=== PATIENT | male | born 1960 | race Caucasian/White ===

== ENCOUNTER 2021-07-21 16:27 | Inpatient (IN) | payer OTHER ==
[~2021-07-21] VITALS: Ht 165.1 cm; Wt 63.5 kg
--- NOTE | ~2021-07-21 | EMS ---
[address] [address] EMS Patient Care Report Name: RADHA MCMAHAN Room #: 213-P ADM IN M.R.#: [id number] Admission: 07/21/21 Attend Phys: Shubham Beckford MD Discharge: Date of : 58 Report #: [id number] THIS REPORT FOR: //name// Report Transmitted: 07/22/2021 12:26 EMS Care Summary [place], [place] Incident [id number] @ 07/21/2021 16:00 Incident Location [id number] [place] [address] Patient RADHA ROSALES Male, 61 Years 1960 Patient Address [id number] [place] [address] Patient History Diabetes,Hypertension (HTN),Dialysis, Patient Allergies Other drug allergy, Patient Medications None Reported, Chief Complaint alt loc Disposition Transported No Lights/[place] Dispatch Reason Stroke/CVA Transported To [facility] Narrative family wheeled pt outside in wheelchair. pt found sitting upright in wheelchair and presented with somnolence. pt confused gcs 13. pt stated he feels "awful". pts family stated pt has missed the last two dialysis appointments due to just moving into the area. family stated pts last dialysis was 07-16. pts skin is [address] [address] EMS Patient Care Report Name: RADHA MCMAHAN Room #: 213-P [facility] IN .R.#: [id number] Admission: 07/21/21 Attend Phys: Shubham Beckford MD Discharge: Date of : 58 Report #: [id number] warm to the touch. pts laguna bag is dark. pts family agreed for [facility]. pt was transferred onto ems cot and was secured in a semi fowlers position without incident. pt was loaded into ambulance. pt was transported non emergent. transport was uneventful and pt rested on ems cot. pt care was transferred to appropriate staff and ems goes back in service. Initial Vitals @16:10P: 82,R: 20,BP: 112/62,Pain: 0/10,GCS: 13,Glucose: 258,SpO2: 92,Revised Trauma: 12, @16:21P: 82,R: 20,BP: 116/70,Pain: 0/10,GCS: 13,SpO2: 98,Revised Trauma: 12, Assessments @16:14MENTAL:No Abnormalities,SKIN:Hot,HEENT:Head/Face: No Abnormalities,Eyes: No Abnormalities,Neck/Airway: No Abnormalities,LUNG SOUNDS:General: No Abnormalities,Left Upper: No Abnormalities,Right Upper: No Abnormalities,Left Lower: No Abnormalities,Right Lower: No Abnormalities,ABDOMEN:General: No Abnormalities,Left Upper: No Abnormalities,Right Upper: No Abnormalities,Left Lower: No Abnormalities,Right Lower: No Abnormalities,PELVIS//GI:No Abnormalities,EXTREMITIES:Left Arm: No Abnormalities,Right Arm: No Abnormalities,Left Leg: No Abnormalities,Right Leg: No Abnormalities,PULSE:NEURO:No Abnormalities,@16:14MENTAL:No Abnormalities,SKIN:No Abnormalities,HEENT:Head/Face: No Abnormalities,Eyes: No Abnormalities,Neck/Airway: No Abnormalities,LUNG SOUNDS:General: No Abnormalities,Left Upper: No Abnormalities,Right Upper: No Abnormalities,Left Lower: No Abnormalities,Right Lower: No Abnormalities,ABDOMEN:General: No Abnormalities,Left Upper: No Abnormalities,Right Upper: No Abnormalities,Left Lower: No Abnormalities,Right Lower: No Abnormalities,PELVIS//GI:No Abnormalities,EXTREMITIES:Left Arm: No Abnormalities,Right Arm: No Abnormalities,Left Leg: No Abnormalities,Right Leg: No Abnormalities,PULSE:NEURO:No Abnormalities, Impression Altered Mental Status Procedures @16:07ALS AssessmentResponse: UnchangedSucceeded@16:19Oxygen FlowRate: 2 Device: Nasal Cannula (NC) Response: ImprovedSucceeded Timeline 15:59,Call Received 15:59,Dispatch Notified 16:00,Dispatched 16:01,En Route 16:05,On Scene 16:07,At Patient 16:07,ALS Assessment,Response: UnchangedSucceeded, [address] [address] EMS Patient Care Report Name: RADHA MCMAHAN Room #: 213-P [facility] IN M.R.#: [id number] Admission: 07/21/21 Attend Phys: Shubham Beckford MD Discharge: Date of : 58 Report #: [id number] 16:10,BP: 112/62 M,PULSE: 82,RR: 20 R,SPO2: 92 Ox,ETCO2: ,B,PAIN: 0,GCS: 13, 16:13,Depart Scene 16:19,Oxygen FlowRate: 2 Device: Nasal Cannula (NC) Response: ImprovedSucceeded, 16:21,BP: 116/70 M,PULSE: 82,RR: 20 R,SPO2: 98 Ox,ETCO2: ,BG: ,PAIN: 0,GCS: 13, 16:23,At Destination 16:36,Call Closed Disclaimer v1.1 Copyright 2020 [employer] This EMS Care Summary contains data elements from the applicable legal record (which may be displayed differently). It is designed to provide pertinent information for the following purposes: continuity of care, clinical quality, and state data reporting. The complete legal record is available to ED staff and administrators of the receiving hospital in ES's Patient Tracker. All data is provided "as is."
[2021-07-21 16:28] VITALS: BP 115/45
[2021-07-21 16:46] LABS: ABSOLUTE NEUTROPHILS 6.4 thou/uL (1.4-8.2); BASOPHILS 0.4 % (0.0-2.0); EOSINOPHILS 0.7 % (0.0-3.0); HEMATOCRIT 29.1 % (42.0-52.0); HEMOGLOBIN 9.9 gm/dL (14.0-18.0); MCHC 34.1 g/dL (28.0-37.0); MCV 82.2 fL (80.0-100.0); MONOCYTES 3.6 % (1.0-8.0); PLATELET COUNT 123 thou/uL (150-400); POLYS 89.3 % (36.0-66.0); RBC 3.54 mil/uL (4.50-6.00); RDW 17.2 % (10.5-14.5); WBC 7.1 thou/uL (4.0-11.0)
[2021-07-21 16:55] LABS: CALCIUM 7.4 mg/dL (8.5-10.1); CREATININE 7.5 mg/dL (0.7-1.3); POTASSIUM 4.4 mmol/L (3.5-5.1)
[2021-07-21 17:00] LABS: ALBUMIN 3.1 g/dL (3.4-5.0); TOTAL BILIRUBIN 0.8 mg/dL (0.2-1.0); TOTAL PROTEIN 7.4 g/dL (6.4-8.2)
[2021-07-21 17:29] LABS: URINE BILIRUBIN NEGATIVE (Negative); URINE BLOOD 2+ (Negative); URINE CLARITY CLEAR; URINE COLOR YELLOW; URINE GLUCOSE-RANDOM* NEGATIVE (Negative); URINE KETONES TRACE (Negative); URINE NITRITE-REFLEX NEGATIVE (Negative); URINE PROTEIN (DIPSTICK) 3+ (Negative); URINE SPECIFIC GRAVITY 1.015 (1.005-1.035); URINE UROBILINOGEN 0.2 E.U./dl (0.2-1.0)
[2021-07-21 17:46] LABS: URINE LEUKOCYTES-REFLEX 1+ (Negative)
--- NOTE | 2021-07-21 17:48 | NUR ---
SPOKE WITH DAUGHTER CJ AT THIS TIME WHO NOTES THEY BOTH JUST MOVED HERE FROM [place]. PT DAUGHTER STATES PCP FROM HOME NOTED THAT HE HAS A UTI AND THEY WERE SUPPOSED TO PROVIDE A PHARMACY FOR ABX AND THEY HAVE NOT. PT DAUGHTER NOTES HE HAS NOT HAD DIAYLSIS SINCE LAST TUESDAY. PT DAUGHTER NOTES PAYNE IS IN PLACE D/T HAVING AN ENLARGED PROSTATE. PT DAUGHTER ALSO NOTES HE WAS SWITCHED FROM HYDROMORPHONE TO OXYCODONE ON TUESDAY. PT DAUGHTER ABLE TO PROVIDE MOST OF THE MEDICATION LIST BUT DOSE NOT KNOW DOSAGE OR FREQUENCY
[2021-07-21 17:54] LABS: SQUAMOUS 0-3 Few /LPF (0-3)
[2021-07-21 17:55] LABS: BACTERIA-REFLEX 1-9 Few /HPF (None Seen); CASTS None Seen /LPF (None Seen); CRYSTALS None Seen /LPF (None Seen); URINE RBC 3-10 Few /HPF (NONE SEEN); URINE WBC-REFLEX 0-5 Rare /HPF (0-5)
[2021-07-21] MEDS ORDERED: LEVO-T25 MCG (17:59)
[2021-07-21] MEDS ORDERED: PERCOCET 5-3251 EACH (17:59)
[2021-07-21] MEDS ORDERED: LYRICA20 MG/1 ML PO (17:59)
[2021-07-21] MEDS ORDERED: CRESTOR10 MG (18:00)
[2021-07-21] MEDS ORDERED: NORVASC 2.5 MG2.5 M1 (18:00)
[2021-07-21] MEDS ORDERED: CARVEDILOL12.5 MG (18:00)
[2021-07-21] MEDS ORDERED: KEPPRA100 MG/1 M (18:00)
[2021-07-21] MEDS ORDERED: LASIX 40 MG TAB40 MG (18:00)
--- NOTE | 2021-07-21 19:14 | NUR ---
REPORT GIVEN ANDRA ROCHA AT THIS TIME
[2021-07-21 22:41] VITALS: BP 137/65
[2021-07-22] VITALS (7 sets, daily range): BP systolic 118–161; BP diastolic 43–104
--- NOTE | 2021-07-22 02:28 | NUR ---
PATIENT IS A NEW ADMISSION TO THE UNIT THIS SHIFT. HE ARRIVED VIA CART FROM THE ER AND WAS TRANSFERRED TO THE BED WITHOUT INCIDENT. PATIENT IS ALERT TO SELF AND SOMETIMES SITUATION ONLY. HE IS PLEASANTLY CONFUSED AND IMPULSIVE AND IS UNABLE TO ASSIST IN ADMISSION. NURSE TO COMPLETE ADMISSION AND INITIATE PLAN OF CARE. ADDENDUM NURSE UNABLE TO PROVIDE ADEQUATE MED RECONCILIATION DUE TO PATIENTS NEURO STATUS AND INABILITY TO REACH DAUGHTER BY PHONE. NURSE TO PASS ON IN REPORT NEED FOR THOROUGH MED RECONCILIATION.
[2021-07-22 05:07] LABS: CALCIUM 7.2 mg/dL (8.5-10.1); CREATININE 7.4 mg/dL (0.7-1.3); POTASSIUM 4.3 mmol/L (3.5-5.1)
[2021-07-22 05:25] LABS: HEMATOCRIT 29.2 % (42.0-52.0); MCH 28.4 pg (26.0-34.0); MCHC 34.3 g/dL (28.0-37.0); MCV 82.7 fL (80.0-100.0); RBC 3.53 mil/uL (4.50-6.00); RDW 17.3 % (10.5-14.5); WBC 6.9 thou/uL (4.0-11.0)
--- NOTE | 2021-07-22 08:27 | EKG ---
[place] [address] [facility] [place] [address] ELECTROCARDIOGRAM REPORT Name: RADHA MCMAHAN Room #: 213-P ADM IN M.R.#: [id number] Admission: 07/21/21 Attend Phys: Shubham Beckford MD Discharge: Date of : 58 Report #: [id number] [facility] ED Test Date: 2021-07-21 Test Time: 16:48:19 Pat Name: RADHA MCMAHAN Department: Room: 213 Gender: M Blunger: CHELSEA : 1960 Requested By: Malini Brumfield Order Number: [id number] MD: José You Measurements Intervals [place] Rate: 77 P: 28 [place]: 173 QRS: -46 QRSD: 100 T: 82 QT: 390 QTc: 442 Interpretive Statements Sinus rhythm Left anterior fascicular block Poor R wave progression No previous ECG available for comparison Electronically Signed On 07-22-2021 8:26:41 CDT by José You [email or web address] <ELECTRONICALLY SIGNED> By: José You MD, [facility] 07/22/21 0826 1648 [id number] José You MD, FACC /EPI
--- NOTE | 2021-07-22 10:43 | NUR ---
RD consult received, unknown reason. Admit with altered mental status, missed dialysis treatments x 2 following recent move here from [place]. Hx DM, ESRD, left BKA. Diet has advanced, no renal restrictions but will defer this to Nephrology. Ate 100% of breakfast. No reported wt loss and healthy bmi. Low nutrition risk
--- NOTE | 2021-07-22 16:48 | NUR ---
Patient admits with AMS/sepsis?seizures. Sp with patient who was confused. Sp with railroad dining car stewardess who reports patient from out of town. He recently relocated and in need of dialysis clinic. Pharmacy Technician Instructor sp with dtr Sandra and discussed [facility] clinic. Patient has missed dialysis, He dializs T,TH,Sat. Patient was living in [facility]. PCP Dr Phelps [phone]. Patients dialysis clinic [facility] [phone]. Sp with Irene at clinic. She reports they had attempted multiple times to attain dtrs number. They were aware of transfer to [place] but patient not forth coming with dtrs number and when transfer. Rec clinical information from clinic placed in chart. Sp with dtr Sandra who reports they arrived to Tuesday/Tuesday. She reports she sp with Dr Gilbert and interest in [facility] location. Left message with [facility] dialysis coordinator [phone]. . Faxed clinical information to clinic. Updated RN.
--- NOTE | 2021-07-22 18:30 | NUR ---
PT IS AXOX3-4; PT C/O CHRONIC NECK/BACK PAIN; VSS, AFEBRILE, SR ON MONITOR. DR TAI CONSULTED. PT DIALYZED THIS PM. CASE MGMT CONSULTED, AND DTR NOTIFIED. POC IS TO CONTINUE PAIN MGMT; PT FLUIDS D/C'd. PT IS L BKA. FALL PRECAUTIONS IN PLACE. SEIZURE PRECAUTIONS IN PLACE. CALL LIGHT AND NEEDS WITHIN REACH. FREQUENT ROUNDING.
[2021-07-23 01:06] LABS: GLYCOHEMOGLOBIN (HGB A1C) 6.2 % (4.8-5.6)
[2021-07-23 04:37] VITALS: BP 120/61
[2021-07-23 05:11] LABS: HEMATOCRIT 30.4 % (42.0-52.0); HEMOGLOBIN 10.4 gm/dL (14.0-18.0); MCH 28.4 pg (26.0-34.0); MCHC 34.2 g/dL (28.0-37.0); MCV 82.8 fL (80.0-100.0); RBC 3.67 mil/uL (4.50-6.00); RDW 16.8 % (10.5-14.5); WBC 4.8 thou/uL (4.0-11.0)
[2021-07-23 05:23] LABS: CALCIUM 8.3 mg/dL (8.5-10.1); POTASSIUM 3.9 mmol/L (3.5-5.1)
--- NOTE | 2021-07-23 06:11 | NUR ---
ASSUMED CARE OF THIS PT AT APPROXIMATELY 0230. PT WAS SLEEPY YET AROUSABLE. IT WAS NOTED THAT THE PT HAD SPILLED HIS COFFEE WHICH WAS GIVEN TO HIM EARLIER. PT'S BS WAS 341 AND HE RECEIVED 12 UNITS OF LISPRO SS INSULIN. AT APPROXIMATELY 0400 DURING THIS RN'S ROUNDING, PT WAS DIFFICULTY TO AROUSE AND DID NOT "LOOK" GOOD. PT DID NOT OPEN EYES, WAS NOT CLAMMY, NOR DIAPHORECTIC. HR WAS RANGING FROM 48-54. A BLOOD SUGAR WAS TAKEN AND THE INITIAL BS WAS 30. ONE AMP OF D50 WAS GIVEN. PT BECAME MORE ALERT AND RESPONSIVE. 15 MINS LATER, BS WAS 155. HR INCREASED TO 58-60. TYRON SANDERS NP, WAS NOTIFIED OF PT'S BS AND THE DOSE OF D50 WHICH WAS GIVEN. NO FURTHER ORDERS WERE GIVEN. PT IS NOW MORE AWAKE, RESPONSIVE AND FOLLOWING SIMPLE COMMANDS. WILL CONTINUE TO MONITOR.
[2021-07-23 08:36] VITALS: BP 126/54
--- NOTE | 2021-07-23 10:18 | NUR ---
Assumed care of pt this AM. Pt is oriented to self only. Reoriented pt to location & why he is here. Pt does not remember ever coming to [place]. Pt lethargic this morning. Remains on 2L NC, sinus summer on the monitor. Dr Beckford notified of pts change in condition. PRN pain medication given for back pain. Will continue to assess pts needs throughout the day.
[2021-07-23 11:28] VITALS: BP 144/58
--- NOTE | 2021-07-23 15:52 | NUR ---
Spoke with [facility] at [facility] intake. Faxed updated clinical for review. [facility] plans to call dtr to discuss.
[2021-07-23 16:00] VITALS: BP 140/78
[2021-07-23] MEDS ORDERED: VYZULTA5 ML OPHTHALMIC (16:40)
[2021-07-23] MEDS ORDERED: VOLTAREN ARTHRI20 GM TOP (16:41)
[2021-07-23 19:43] VITALS: BP 161/77
[2021-07-24 04:57] VITALS: BP 156/73
[2021-07-24 05:53] LABS: HEMOGLOBIN 10.8 gm/dL (14.0-18.0); MCH 27.7 pg (26.0-34.0); MCHC 33.7 g/dL (28.0-37.0); MCV 82.1 fL (80.0-100.0); RBC 3.9 mil/uL (4.50-6.00); RDW 16.8 % (10.5-14.5); WBC 4.9 thou/uL (4.0-11.0)
[2021-07-24 06:04] LABS: CALCIUM 8.6 mg/dL (8.5-10.1); POTASSIUM 4.2 mmol/L (3.5-5.1)
[2021-07-24 06:06] LABS: CREATININE 5.5 mg/dL (0.7-1.3)
--- NOTE | 2021-07-24 06:18 | NUR ---
Assumed pt's care beginning of pm shift. Oriented to self. Forgetful. Confused but cooperative with care. IV found to be out beginning of shift. Pt able to turn self in bed. [place] for voiding. Pain meds given this shift. Pt slept well this shift. Fall precautions in place. Call light within reach. Nursing to continue to monitor.
[2021-07-24 08:00] VITALS: BP 149/102
[2021-07-24 11:40] VITALS: BP 154/92
--- NOTE | 2021-07-24 17:51 | NUR ---
Spoke with America at [facility] who reports patient has dialysis arranged. [facility] Tues/THedin/Sat. [facility] has spoken to dtr who is aware of dialysis time. Therapy evals in process. Patient may need post acute care. NO PCP established for HH care.
[2021-07-24 19:38] VITALS: BP 114/59
--- NOTE | 2021-07-24 19:41 | NUR ---
PT ALERT AND ORIENTED TIMES FOUR. VSS. PT DENEIS PAIN/SOA. PT TOLERATES MEDS BUT REFUSED ALL MEALS THIS SHIFT. PT HAD DIAYLSIS TODAY. 2 LITIERS OFF. SPOKE WITH PT SISTER THIS MORNING TO UPDATE ON CARE. ATTEMPTED TO CALL PT SISTER CJ WITH NO RESPONE.
[2021-07-25 02:06] LABS: HEPATITIS B SURFACE AG Negative (Negative)
--- NOTE | 2021-07-25 03:51 | NUR ---
PATIENT RESTING IN HIS ROOM. AAOX3. STATES THAT HE HAS BEEN HAVING SOME PAIN IN HIS LOWER BACK. PATIENT STATES THAT HE DOES FEEL BETTER AFTER BEING DIALYSED EARLIER IN THE DAY. ASSISTED PATIENT TO BEDPAN FOR 1 SMALL BM. PATIENT IS ON 2L NC. VSS. PATIENT COMPLIANT WITH MEDICATION AND TREATMENT. NO S/S OF DISTRESS NOTED. FALL PRECAUTIONS IN PLACE. WILL CONTINUE TO MONITOR.
[2021-07-25 04:21] VITALS: BP 137/68
[2021-07-25 07:45] VITALS: BP 153/85
[2021-07-25 12:00] VITALS: BP 147/80
[2021-07-25 17:25] VITALS: BP 178/78
[2021-07-25 19:45] VITALS: BP 160/79
[2021-07-26 04:22] VITALS: BP 118/63
--- NOTE | 2021-07-26 04:55 | NUR ---
ASSUMED PATIENT CARE AT 07/26/21 AT 0100AM.PATIEN TIS ALERT AND ORIENTED.ON ROOM AIR BREATHING SPONTANEOUSLY.NOT IN PAIN OR DISTRESS.WITH DIALYSIS CATHETER INTACT.ALL NEEDS ATTENDED.
[2021-07-26 08:15] VITALS: BP 106/51
[2021-07-26 11:50] VITALS: BP 113/60
[2021-07-26 16:10] VITALS: BP 136/67
--- NOTE | 2021-07-26 18:38 | NUR ---
PT NOW SLEEPING. HAD THREATENED TO GO HOME EARLIER BECAUSE HE WANTS TO HAVE HIS PAIN MEDICATIONS EARLY. EDUCATED ON NEED TO COMPLETE DIALYSIS TOMORROW. HE AGREED. ALERT ORIENTED X4. DOES NOT SEEM TO BE IN PAIN AT THIS TIME. WILL CONT WITH PLAN OF CARE.
[2021-07-26 19:44] VITALS: BP 136/70
[2021-07-27 04:21] LABS: HEMATOCRIT 29.7 % (42.0-52.0); HEMOGLOBIN 10.1 gm/dL (14.0-18.0); MCH 27.7 pg (26.0-34.0); MCHC 33.9 g/dL (28.0-37.0); MCV 81.8 fL (80.0-100.0); RBC 3.63 mil/uL (4.50-6.00); RDW 17.2 % (10.5-14.5); WBC 2.8 thou/uL (4.0-11.0)
[2021-07-27 04:29] VITALS: BP 162/71
[2021-07-27 04:37] LABS: CALCIUM 8.5 mg/dL (8.5-10.1); POTASSIUM 3.9 mmol/L (3.5-5.1)
--- NOTE | 2021-07-27 04:40 | NUR ---
RECEIVED THE PATIENT ALERT AND ORIENTED.ON ROOM AIR BREATHING SPONTANEOUSLY.WITH DIALYSIS CATHETER INTACT.SINUS RYTHM ON THE MONITOR.NOT IN DISTRESS.ALL NEEDS ATTENDED.
[2021-07-27 04:43] LABS: CREATININE 6.6 mg/dL (0.7-1.3)
[2021-07-27 05:00] VITALS: BP 133/66
[2021-07-27 16:00] VITALS: BP 126/49
--- NOTE | 2021-07-27 18:49 | NUR ---
patient would benefit from post acute care. patient prefers to return home. Sp with dtr who is inagreement of skilled care. She plans to call her father. Emailed skilled list for review.
[2021-07-27 19:38] VITALS: BP 189/77
--- NOTE | 2021-07-27 19:53 | NUR ---
Pt remained safe and comfortable, pain controlled, VSS, HD went well no complications( 1.7 L out). PT received meds as prescibed, afebrile. Waiting fro discharge.
[2021-07-27 23:39] VITALS: BP 92/50
[2021-07-28 03:46] VITALS: BP 102/86
[2021-07-28 08:00] VITALS: BP 117/65
--- NOTE | 2021-07-28 08:51 | NUR ---
ASSUME CARE 1900. PT/VITALS STABLE. CHRONIC NECK PAIN WITH PAIN MEDS FOR RELIEF. MODERATE TOLERANCE TO ACTIVITY. WHEELCHAIR BOUND. NO DISTRESS NOTED THROUGH THE SHIFT. ADEQUATE REST. SB ON MONITOR. ASSESSMENT CHARTED. PROGRESSING WELL WITH POC. PLAN IS POSSIBEL DISCHARGE TODAY. WILL CONTINUE TO MONITOR AND FOLLOW WITH POC
[2021-07-28 12:00] VITALS: BP 96/53
[2021-07-28 16:00] VITALS: BP 125/68; BP 96/53
--- NOTE | 2021-07-28 16:27 | NUR ---
Referral to [facility]. Sp with dtr alerted of dialysis at [facility]. Will update outpatient clinic. [facility] reviewing information. dtr in agreement with plan. Possible dc in am
--- NOTE | 2021-07-28 18:26 | NUR ---
PT ALERT AND ORIENTED TIMES FOUR. VSS. PT C/O PAIN PRN PAIN MEDICATIONS CONTROLLING PAIN WELL. PT TOLERATES MEDS AND MEALS. PT UP TO BSC WITH BY STANDY ASSIST. POSSIBLE PLANS FOR DISCHARGE TOMORROW. WILL CONTINUE TO MONITOR.
[2021-07-28 20:15] VITALS: BP 184/80; BP 185/75
[2021-07-28 21:59] VITALS: BP 152/71
--- NOTE | 2021-07-29 03:44 | NUR ---
PT IS A/O X4 AND IS UP WITH ASSISTANCE X1 TO THE BSC. ROOM AIR. BP ELEVATED AT TIMES. PRN BP MEDICATION GIVEN DIRECTED. C/O PAIN TO RIGHT NECK AND SHOULDER. PRN PAIN MEDICATION GIVEN DIRECTED. SR/SB ON THE MONITOR. MEDICATIONS GIVEN DIRECTED. PT IS PLEASANT AND COOPERATIVE WITH CARES. CAN BE IMPULSIVE DUE TO URGENCY WITH BLADDER. FALL PRECAUTIONS IMPLEMENTED, CALL LIGHT IS WITHIN REACH.
[2021-07-29 09:00] VITALS: BP 106/68
--- NOTE | 2021-07-29 09:03 | NUR ---
I have reviewed the documentation by Marielos Del Valle from 07/27/21 to 07/27/21 and I concur with it. AMARILYS CHAUDHARY
[2021-07-29 11:30] VITALS: BP 82/50
[2021-07-29 14:41] VITALS: BP 82/50
--- NOTE | 2021-07-29 15:54 | NUR ---
PT ALERT AND ORIENTED TIMES FOUR WITH PERIODS OF CONFUSION. VSS. DIALYSIS TODAY 2L OFF. PT C/O PAIN PRN PAIN MEDICATION GIVEN WITH GOOD RELEIF. PLANS FOR DISCHAGE TODAY. WILL CONTINUE TO MONITOR.
--- NOTE | 2021-07-29 18:18 | NUR ---
DC summary/orders/renal consult/flow sheets/labs/covid faxed and called to Malini at [facility] this evening. Dtr alerted for 1100 chair time tomorrow but to arrive early with id/ins card.
[2021-07-30] MEDS ORDERED: ZOFRAN ODT4 MG PO (00:44)
== END 2021-07-29 17:01 | DRG 871 ==
LOC: ER 16:27 → 2N 20:57 → EROBS 20:57 → 2N 07-22 00:13
PROVIDERS: Emergency Medicine; Hospitalist; Nurse Practitioner Family; ADMIT Hospitalist; ATTEND Hospitalist
PROC: 5A1D70Z Performance of Urinary Filtration, Intermittent, Less than 6 Hours Per Day (ICD-10-PCS; principal; 2021-07-24)
PROC: 5A1D70Z Performance of Urinary Filtration, Intermittent, Less than 6 Hours Per Day (ICD-10-PCS; 2021-07-29)
DX: A41.9 Sepsis, unspecified organism (principal); N18.6 End stage renal disease; N39.0 Urinary tract infection, site not specified; G93.40 Encephalopathy, unspecified; I69.354 Hemiplegia and hemiparesis following cerebral infarction affecting left non-dominant side; I12.0 Hypertensive chronic kidney disease with stage 5 chronic kidney disease or end stage renal disease; Z20.822 Contact with and (suspected) exposure to COVID-19; R65.20 Severe sepsis without septic shock; E78.5 Hyperlipidemia, unspecified; E11.22 Type 2 diabetes mellitus with diabetic chronic kidney disease; E11.51 Type 2 diabetes mellitus with diabetic peripheral angiopathy without gangrene; E11.649 Type 2 diabetes mellitus with hypoglycemia without coma; Z79.899 Other long term (current) drug therapy; Z88.1 Allergy status to other antibiotic agents; Z87.891 Personal history of nicotine dependence; Z89.512 Acquired absence of left leg below knee; Z88.8 Allergy status to other drugs, medicaments and biological substances
CPT/HCPCS: 10081; 32100

== ENCOUNTER 2021-07-29 22:14 | Emergency (ER) | payer OTHER ==
[~2021-07-29] VITALS: Ht 165.1 cm; Wt 73.5 kg
--- NOTE | ~2021-07-29 | EMS ---
[address] [address] EMS Patient Care Report Name: RADHA MCMAHAN Room #: DEP DEREK Ashley#: [id number] Admission: 07/29/21 Attend Phys: Discharge: 07/30/21 Date of : 58 Report #: [id number] THIS REPORT FOR: //name// Report Transmitted: 08/03/2021 11:13 EMS Care Summary [place], [place] Incident [id number] @ 07/29/2021 21:49 Incident Location [address] [place] [address] Patient RADHA MCMAHAN Male, 61 Years 1960 Patient Address [id number] [place] [address] Patient History End Stage Renal Disease (ESRD),Urinary Tract Infection (UTI),Sepsis, Patient Allergies Other drug allergy, Patient Medications Oxycodone, Furosemide, Levothyroxine, Keppra, Chief Complaint N&V Disposition Transported No Lights/[place] Dispatch Reason Hemorrhage/Laceration Transported To [facility] Narrative ARRIVED TO FIND PT SITTING IN A WHEELCHAIR. PT STATES HE HAS BEEN VOMITING ALL DAY AFTER DIALYSIS. PT MOVED TO COT, SECURED WITH STRAPS X2, LOADED WITHOUT INCIDENT. [facility] [address] [place] [address] EMS Patient Care Report Name: RADHA MCMAHAN Room #: DEP Dion#: [id number] Admission: 07/29/21 Attend Phys: Discharge: 07/30/21 Date of : 58 Report #: [id number] ENROUTE, PT CONDITION UNCHANGED. ARRIVED. PT TAKEN INSIDE ON COT TO ER 4. PT MOVED TO BED RAILS RAISED X2. REPORT GIVEN TO NURSE, PT CARE TRANSFERRED. Initial Vitals @21:59P: 75,R: 16,BP: 179/100,Pain: 6/10,GCS: 15,SpO2: 100,Revised Trauma: 12, @22:07P: 69,R: 16,BP: 175/139,Pain: 6/10,GCS: 15,CO: 4,SpO2: 99,Revised Trauma: 12, Assessments @21:55MENTAL:Person Oriented,Time Oriented,Place Oriented,Event Oriented,SKIN:HEENT:Head/Face: No Abnormalities,Eyes: No Abnormalities,Neck/Airway: No Abnormalities,LUNG SOUNDS:General: Vomiting,General: Nausea,Left Upper: No Abnormalities,Right Upper: No Abnormalities,Left Lower: No Abnormalities,Right Lower: No Abnormalities,ABDOMEN:General: Vomiting,General: Nausea,Left Upper: No Abnormalities,Right Upper: No Abnormalities,Left Lower: No Abnormalities,Right Lower: No Abnormalities,PELVIS//GI:No Abnormalities,EXTREMITIES:Left Arm: No Abnormalities,Right Arm: No Abnormalities,Left Leg: No Abnormalities,Right Leg: No Abnormalities,PULSE:Radial: 2+ Normal,NEURO:No Abnormalities, Impression Nausea Procedures @21:55ALS AssessmentResponse: UnchangedSucceeded Timeline 21:47,Call Received 21:47,Dispatch Notified 21:49,Dispatched 21:49,En Route 21:53,On Scene 21:55,At Patient 21:55,ALS Assessment,Response: UnchangedSucceeded, 21:59,BP: 179/100 M,PULSE: 75,RR: 16 R,SPO2: 100 Ox,ETCO2: ,BG: ,PAIN: 6,GCS: 15, 22:00,Depart Scene 22:07,BP: 175/139 M,PULSE: 69,RR: 16 R,SPO2: 99 Ox,ETCO2: ,BG: ,PAIN: 6,GCS: 15, 22:17,At Destination 22:25,Call Closed Disclaimer v1.1 Copyright 2020 [employer] [facility] [address] [place] [address] EMS Patient Care Report Name: RADHA MCMAHAN Room #: DEP [facility].#: [id number] Admission: 07/29/21 Attend Phys: Discharge: 07/30/21 Date of : 58 Report #: [id number] This EMS Care Summary contains data elements from the applicable legal record (which may be displayed differently). It is designed to provide pertinent information for the following purposes: continuity of care, clinical quality, and state data reporting. The complete legal record is available to ED staff and administrators of the receiving hospital in [employer]'s Patient Tracker. All data is provided "as is."
[~2021-07-29 22:14] MED LIST: CARVEDILOL12.5 MG; CRESTOR10 MG; KEPPRA100 MG/1 M; LASIX 40 MG TAB40 MG; LEVO-T25 MCG; LYRICA20 MG/1 ML PO; NORVASC 2.5 MG2.5 M1; PERCOCET 5-3251 EACH; VOLTAREN ARTHRI20 GM TOP; VYZULTA5 ML OPHTHALMIC
[2021-07-29 23:26] LABS: HEMATOCRIT 34.9 % (42.0-52.0); HEMOGLOBIN 11.5 gm/dL (14.0-18.0); MCH 27.1 pg (26.0-34.0); MCV 82.1 fL (80.0-100.0); PLATELET COUNT 212 thou/uL (150-400); RBC 4.25 mil/uL (4.50-6.00); WBC 3.6 thou/uL (4.0-11.0)
[2021-07-29 23:38] LABS: CALCIUM 8.8 mg/dL (8.5-10.1); POTASSIUM 4.8 mmol/L (3.5-5.1)
[2021-07-29 23:44] LABS: ALBUMIN 3.5 g/dL (3.4-5.0); DIRECT BILIRUBIN 0.2 mg/dL (<0.1-0.2); TOTAL BILIRUBIN 0.5 mg/dL (0.2-1.0); TOTAL PROTEIN 8.2 g/dL (6.4-8.2)
[2021-07-30 00:13] LABS: ABSOLUTE NEUTROPHILS 2.5 thou/uL (1.4-8.2); ANISOCYTOSIS 1+; PLATELET ESTIMATE NORMAL; POIKILOCYTOSIS 1+
[2021-07-30] MEDS ORDERED: ZOFRAN ODT4 MG PO (00:44)
[2021-07-30 01:05] VITALS: BP 188/83
== END 2021-07-30 01:05 | disposition home or self-care (01) ==
LOC: ER 22:14
PROVIDERS: Emergency Medicine
DX: R11.2 Nausea with vomiting, unspecified (principal); K21.9 Gastro-esophageal reflux disease without esophagitis; E78.5 Hyperlipidemia, unspecified; I12.0 Hypertensive chronic kidney disease with stage 5 chronic kidney disease or end stage renal disease; E11.22 Type 2 diabetes mellitus with diabetic chronic kidney disease; N18.6 End stage renal disease; Z79.891 Long term (current) use of opiate analgesic; Z79.1 Long term (current) use of non-steroidal anti-inflammatories (NSAID); Z79.899 Other long term (current) drug therapy; Z88.1 Allergy status to other antibiotic agents; Z88.8 Allergy status to other drugs, medicaments and biological substances; Z87.891 Personal history of nicotine dependence

== ENCOUNTER 2021-09-11 03:04 | Inpatient (IN) | payer OTHER ==
[~2021-09-11] VITALS: Ht 165.1 cm; Wt 66.6 kg
[2021-09-11] VITALS (8 sets, daily range): BP systolic 111–165; BP diastolic 49–78
--- NOTE | ~2021-09-11 | HC ---
[facility] [place] [address] CONSULTATION Name: RADHA MCMAHAN Room #: 215-P ADM IN M.R.#: [id number] Admission: 09/11/21 Attend Phys: Rommel Fairbanks MD Discharge: Date of : 58 Report #: [id number] THIS REPORT FOR: cc: NICKY - No family physician/PCP NICKY - No family physician/PCP Maximo Mireles MD ~ DATE OF SERVICE: 09/14/2021 HISTORY OF PRESENT ILLNESS: The patient is a 61-year-old male admitted with seizure-like activities, seen by Neurology. MRI of the brain is currently pending. The patient is noted to be feeling better. He has decreased tolerance and gets very fatigued after dialysis. He also has significant orthostasis with symptoms of dizziness and has ROJELIO hose and midodrine ordered. He has significant variability with his diabetic sugars. He also has chronic pain syndrome. We are seeing him in rehabilitation medicine consultation. PAST MEDICAL HISTORY: He has a history of end-stage renal disease on hemodialysis. He has an old left below-knee amputation. He does have a prosthesis for this, but has not utilized it for a number of weeks as he does not have the endurance at this point. History of diabetes mellitus. There is note of a prior CVA with some left-sided weakness, hypertension, elevated lipids. MEDICATIONS: Please see the full medication listing. ALLERGIES: BACLOFEN, BUSPIRONE, PENTAZOCINE, CLINDAMYCIN. HABITS: No history of tobacco or alcohol abuse. SOCIAL HISTORY: Moved recently from [place] about 3 months ago to live with his daughter in a house. The daughter is there as well as the daughter's boyfriend and a grandson. The house is on one floor except for the basement which he does not need to go down. He has been using his wheelchair most recently. REVIEW OF SYSTEMS: No current complaints of chest pain, shortness of breath or abdominal discomfort. PHYSICAL EXAMINATION: GENERAL: A 61-year-old small statured male in no obvious distress. HEENT: He does have decreased vision with his diabetes and notes that he will need to see an eye doctor. Facies appeared symmetric. EXTREMITIES: Functional range of motion of both upper extremities, strength is probably grade 3+/5. Lower extremities, he has the old well-healed left below-knee amputation. He has good range of motion at the knee. Strength of both lower extremities is probably a grade 3+/5. He is min assist coming to [facility] [address] [place] [address] CONSULTATION Name: RADHA MCMAHAN Room #: 215-P [facility] IN M.R.#: [id number] Admission: 09/11/21 Attend Phys: Rommel Fairbanks MD Discharge: Date of : 58 Report #: [id number] sit. He has decreased tolerance and notes it is especially decreased after dialysis. ASSESSMENT: A 61-year-old male with the following problem list: 1. Question of seizure-like activities. MRI of the brain is pending. 2. End-stage renal disease, on hemodialysis. 3. Left below-knee amputation. 4. Diabetes mellitus with variability in blood sugars. 5. Decreased vision. PLAN: I questioned if he could tolerate an acute 5 North inpatient rehabilitation level. He does tend to fatigue quite quickly. We will see what the MRI of the brain shows but at this point, skilled is likely the most appropriate care level for him. We will follow along with you. By: 1340 1620 Maximo Mireles MD /nt
--- NOTE | ~2021-09-11 | EMS ---
[address] [address] EMS Patient Care Report Name: RADHA MCMAHAN Room #: REG DEREK Ashley#: [id number] Admission: 09/11/21 Attend Phys: Discharge: Date of : 58 Report #: [id number] THIS REPORT FOR: //name// Report Transmitted: 09/11/2021 02:52 EMS Care Summary [place], [place]/[facility] Incident [id number] @ 09/11/2021 02:30 Incident Location [id number] [place] [address] Patient RADHA MCMAHAN Male, 61 Years 1960 Patient Address [id number] [place] [address] Patient History Diabetes,End Stage Renal Disease (ESRD),Urinary Tract Infection (UTI),Sepsis, Patient Allergies Other drug allergy, Patient Medications Keppra, Oxycodone, Carvedilol, Tamsulosin, Furosemide, Levothyroxine, Levetiracetam, Diazepam, Finasteride, Chief Complaint DIZZINESS Disposition Transported No Lights/[place] Dispatch Reason Sick Person Transported To [facility] Narrative M42 ARRIVES TO FIND 61 Y/O M PT COMPLAINING OF DIZZINESS AND WEAKNESS. FAMILY ON SCENE STATES THEY BELIEVE HE MAY HAVE HAD A SEIZURE AND ARE ALSO WORRIED BECAUSE HE HAS BEEN VOMITING AND MISSED DIALYSYS TODAY. [address] [address] EMS Patient Care Report Name: RADHA MCMAHAN Room #: REG Dion#: [id number] Admission: 09/11/21 Attend Phys: Discharge: Date of : 58 Report #: [id number] ASSESSMENTS AND TREATMENTS NOTED. PT MOVED TO COT VIA EXTREMITY LIFT. PT MOVED TO AMBULANCE. PT TRANSPORTED. M42 ARRIVES AT DESTINATION. PT MOVED TO ROOM IN ED. PT MOVED TO BED IN ROOM VIA DRAWSHEET METHOD. PT CARE TRANSFERRED. M42 RETURNS TO SERVICE. Initial Vitals @02:44P: 72,BP: 158/72,SpO2: 100, @02:42P: 65,R: 18,BP: 177/79,Pain: 0/10,GCS: 15,Glucose: 136,SpO2: 100,Revised Trauma: 12, Assessments @02:37MENTAL:Event Oriented,Person Oriented,Place Oriented,Time Oriented,SKIN:Jaundiced,HEENT:LUNG SOUNDS:ABDOMEN:PELVIS//GI:EXTREMITIES:Left Arm: Weakness,Left Leg: Weakness,Right Arm: Weakness,Right Leg: Weakness,PULSE:NEURO:@02:57MENTAL:No Abnormalities,SKIN:Jaundiced,HEENT:Head/Face: No Abnormalities,Eyes: No Abnormalities,Neck/Airway: No Abnormalities,LUNG SOUNDS:General: No Abnormalities,Left Upper: No Abnormalities,Right Upper: No Abnormalities,Left Lower: No Abnormalities,Right Lower: No Abnormalities,ABDOMEN:General: No Abnormalities,Left Upper: No Abnormalities,Right Upper: No Abnormalities,Left Lower: No Abnormalities,Right Lower: No Abnormalities,PELVIS//GI:No Abnormalities,EXTREMITIES:Left Arm: Weakness,Right Arm: Weakness,Right Leg: Weakness,Left Leg: Weakness,PULSE:NEURO:No Abnormalities, Impression Syncope / Fainting Procedures @02:37 ALS Assessment Response: UnchangedSucceeded @02:42 IV Therapy - Saline Lock 0cc (20 ga) Site: Antecubital-Left Response: UnchangedFailed @02:45 IV Therapy - Saline Lock 0cc (20 ga) Site: Hand-Left Response: UnchangedFailed @02:42 3-Lead ECG Response: UnchangedSucceeded Timeline 02:28,Call Received 02:28,Dispatch Notified 02:30,Dispatched 02:32,En Route 02:36,On Scene 02:37,At Patient 02:37,ALS Assessment,Response: UnchangedSucceeded, 02:42,IV Therapy - Saline Lock 0cc 20 ga Site: Antecubital-Left,Response: UnchangedFailed, [facility] [address] [place] [address] EMS Patient Care Report Name: RADHA MCMAHAN Room #: REG DEREK Ashley#: [id number] Admission: 09/11/21 Attend Phys: Discharge: Date of : 58 Report #: [id number] 02:42,3-Lead ECG,Response: UnchangedSucceeded, 02:42,BP: 177/79 M,PULSE: 65,RR: 18 R,SPO2: 100 Ox,ETCO2: ,B,PAIN: 0,GCS: 15, 02:44,BP: 158/72 M,PULSE: 72,RR: R,SPO2: 100 Ox,ETCO2: ,BG: ,PAIN: ,GCS: , 02:45,IV Therapy - Saline Lock 0cc 20 ga Site: Hand-Left,Response: UnchangedFailed, 02:51,Depart Scene 03:10,At Destination 03:13,Call Closed Disclaimer v1.1 Copyright 2020 [employer] This EMS Care Summary contains data elements from the applicable legal record (which may be displayed differently). It is designed to provide pertinent information for the following purposes: continuity of care, clinical quality, and state data reporting. The complete legal record is available to ED staff and administrators of the receiving hospital in [employer]'s Patient Tracker. All data is provided "as is."
[~2021-09-11 03:04] MED LIST changes: +ZOFRAN ODT4 MG PO
[2021-09-11 03:37] LABS: ABSOLUTE NEUTROPHILS 1.8 thou/uL (1.4-8.2); BASOPHILS 1.5 % (0.0-2.0); EOSINOPHILS 2.6 % (0.0-3.0); HEMATOCRIT 34.6 % (42.0-52.0); HEMOGLOBIN 11.6 gm/dL (14.0-18.0); LYMPHOCYTES 32.4 % (24.0-44.0); MCH 28.6 pg (26.0-34.0); MCHC 33.5 g/dL (28.0-37.0); MCV 85.2 fL (80.0-100.0); PLATELET COUNT 122 thou/uL (150-400); POLYS 55.5 % (36.0-66.0); RBC 4.06 mil/uL (4.50-6.00); RDW 15.5 % (10.5-14.5); WBC 3.3 thou/uL (4.0-11.0)
[2021-09-11 03:45] LABS: CALCIUM 8.7 mg/dL (8.5-10.1); CREATININE 4.6 mg/dL (0.7-1.3); POTASSIUM 4.6 mmol/L (3.5-5.1)
[2021-09-11 03:53] LABS: APTT 20.8 Seconds (24.5-32.8); INR 1.02; PROTIME 11.1 Seconds (10.5-12.1)
[2021-09-11 03:59] LABS: ALBUMIN 3.4 g/dL (3.4-5.0); TOTAL BILIRUBIN 0.6 mg/dL (0.2-1.0); TOTAL PROTEIN 7.2 g/dL (6.4-8.2)
[2021-09-11 04:24] LABS: URINE BILIRUBIN NEGATIVE (Negative); URINE BLOOD 2+ (Negative); URINE CLARITY CLEAR; URINE COLOR YELLOW; URINE GLUCOSE-RANDOM* NEGATIVE (Negative); URINE KETONES TRACE (Negative); URINE LEUKOCYTES-REFLEX NEGATIVE (Negative); URINE NITRITE-REFLEX NEGATIVE (Negative); URINE PROTEIN (DIPSTICK) 2+ (Negative); URINE UROBILINOGEN 0.2 E.U./dl (0.2-1.0)
[2021-09-11] MEDS ORDERED: DIAZEPAM 5 MG5 M1 PO (04:27)
[2021-09-11] MEDS ORDERED: CARVEDILOL3.125 MG PO (04:28)
[2021-09-11] MEDS ORDERED: ROSUVASTATIN CA20 MG PO (04:28)
[2021-09-11] MEDS ORDERED: PERCOCET 10-321 EACH PO (04:29)
[2021-09-11 05:05] LABS: BACTERIA-REFLEX 1-9 Few /HPF (None Seen); CASTS None Seen /LPF (None Seen); CRYSTALS None Seen /LPF (None Seen); MUCUS 0-3 Light strn/LPF (None Seen); SQUAMOUS 0-3 Few /LPF (0-3); URINE WBC-REFLEX 0-5 Rare /HPF (0-5)
--- NOTE | 2021-09-11 07:08 | EKG ---
[address] [employer] [place] [address] ELECTROCARDIOGRAM REPORT Name: RADHA MCMAHAN Room #: 170-8 ADM IN M.R.#: [id number] Admission: 09/11/21 Attend Phys: Rommel Fairbanks MD Discharge: Date of : 58 Report #: [id number] [facility] ED Test Date: 2021-09-11 Test Time: 03:29:26 Pat Name: RADHA MCMAHAN Department: Room: 170 Gender: M Freight Separator: shyam : 1960 Requested By: Victor Manuel Steele Order Number: [id number] MD: Demond Torres Measurements Intervals [place] Rate: 59 P: 38 PA: 156 QRS: -57 QRSD: 104 T: -57 QT: 413 QTc: 410 Interpretive Statements Sinus rhythm Anterior infarct, old Lateral leads are also involved Compared to ECG 07/21/2021 16:48:19 Myocardial infarct finding now present Left anterior fascicular block no longer present Poor R-wave progression no longer present Electronically Signed On 09-11-2021 7:08:08 CDT by Demond Torres [email or web address] <ELECTRONICALLY SIGNED> By: Demond Torres MD, FACC 09/11/21 0708 0329 0329 Demond Torres MD, FAC /EPI
--- NOTE | 2021-09-11 17:13 | NUR ---
Case opened to follow for dc planning. Pt known to from recent admission last month and dc to snf at [facility] on 07/29/21 for skilled rehab stay. The pt is ESRD with hemo dialysis at [facility] TTS 1100 shift. He has since returned home with his dtr's home. No steps.He missed dialysis on yesterday and was not feeling well. Pt admitted with a seizure. He also has a hx of CVA and LT BKA with prothesis and is on ss disability. He recently moved to the [facility] from [place] to live with his dtr a couple of months ago. He has a w/c, rwalker and cane and is normally indep with tx and gait within the home while his dtr is at work. PT/OT evals in progress. [facility] notified of inpt admissions and h/p faxed. Will follow along to resume his [facility]pt dialysis [facility] and initiate hh or snf referrals if indicated.
--- NOTE | 2021-09-11 17:42 | NUR ---
PATIENT ADMITTED FROM ER THIS MORNING. PATIENT COMPLAINT OF PAIN IN NECK AND BACK. ADMINISTERED PRN PAIN MEDICATION. PATIENT COMPLAINT OF ANXIETY; ANXIETY MEDICATION AVAILABLE IN THE EVENING TO BE GIVEN BY SUPERVISOR CEREAL. SEIZURE PRECAUTIONS IN PLACE. FALL PRECAUTIONS IN PLACE AND CALL LIGHT WITHIN REACH. PATIENT DENIES HEADACHE, DIZZINESS, NAUSEA, OR VOMITING. PATIENT ATE WELL FOR DINNER; ATE 75%. DENIES ANY NEEDS AT THIS TIME. WILL CONTINUE TO MONITOR.
[2021-09-12 02:09] LABS: ABSOLUTE NEUTROPHILS 1.1 thou/uL (1.4-8.2); BASOPHILS 1.5 % (0.0-2.0); HEMATOCRIT 31.7 % (42.0-52.0); HEMOGLOBIN 10.7 gm/dL (14.0-18.0); LYMPHOCYTES 42.3 % (24.0-44.0); MCH 29.1 pg (26.0-34.0); MCHC 33.6 g/dL (28.0-37.0); MCV 86.6 fL (80.0-100.0); MONOCYTES 9.5 % (1.0-8.0); PLATELET COUNT 110 thou/uL (150-400); POLYS 42.7 % (36.0-66.0); RBC 3.67 mil/uL (4.50-6.00); RDW 15.5 % (10.5-14.5); WBC 2.5 thou/uL (4.0-11.0)
[2021-09-12 02:16] LABS: CALCIUM 8.6 mg/dL (8.5-10.1); CREATININE 5.1 mg/dL (0.7-1.3); POTASSIUM 4.5 mmol/L (3.5-5.1)
--- NOTE | 2021-09-12 02:57 | NUR ---
1900 ADMITTED FROM IR POST PROCEDURE. RIGHT GROIN DRESSING C/D/I, NO HEMOTOMA. VSS. ADMISSION PROCESS INITIATED. DENIES COMPLAINTS OF PAIN OR PRESENT SHORTNESS OF AIR. CONTINUE TO ASSES. 2329 ADMISSION PROCESS COMPLETED. OFF BEDREST. ASSISTED TO BEDSIDE COMODE AND VOIDED. GAIT SLOW AND STEADY.
[2021-09-12 05:05] VITALS: BP 116/69
[2021-09-12 13:04] VITALS: BP 129/61
[2021-09-12 16:00] VITALS: BP 107/52
[2021-09-12 19:35] VITALS: BP 95/76
[2021-09-13] VITALS (7 sets, daily range): BP systolic 72–115; BP diastolic 44–73
[2021-09-13 04:12] LABS: ABSOLUTE NEUTROPHILS 1.7 thou/uL (1.4-8.2); BASOPHILS 0.8 % (0.0-2.0); EOSINOPHILS 2.1 % (0.0-3.0); HEMATOCRIT 31.7 % (42.0-52.0); LYMPHOCYTES 33.6 % (24.0-44.0); MCH 29.3 pg (26.0-34.0); MCHC 34.5 g/dL (28.0-37.0); MONOCYTES 7.7 % (1.0-8.0); PLATELET COUNT 104 thou/uL (150-400); POLYS 55.8 % (36.0-66.0); RBC 3.73 mil/uL (4.50-6.00); RDW 15.3 % (10.5-14.5); WBC 3.1 thou/uL (4.0-11.0)
[2021-09-13 04:35] LABS: ALBUMIN 3.1 g/dL (3.4-5.0); CALCIUM 8.2 mg/dL (8.5-10.1); PHOSPHORUS 2.6 mg/dL (2.5-4.9); POTASSIUM 4.4 mmol/L (3.5-5.1); TOTAL BILIRUBIN 0.4 mg/dL (0.2-1.0); TOTAL PROTEIN 6.7 g/dL (6.4-8.2)
[2021-09-13 04:41] LABS: CREATININE 3.4 mg/dL (0.7-1.3)
--- NOTE | 2021-09-13 08:02 | NUR ---
PT LYING IN BED. DILUADID PROVIDING PAIN RELIEF. RESTING COMFORTABLY. NO NEEDS VOICED. CALL LIGHT WITHIN REACH. FREQUENT OBSERVATION.
--- NOTE | 2021-09-13 12:19 | NUR ---
Assumed care of pt this AM. Pt is A&O x4, on RA. SB on the monitor. Per orders, bladder scan done on pt showing >165mL in bladder. Pt c/o some abdominal discomfort. Straight cath done w/ 150mL of clr, yellow urine returned. Suppository given for constipation w/ BM. Pt c/o chronic back pain. Will continue to assess pt needs throughout shift.
--- NOTE | 2021-09-14 03:56 | NUR ---
PT C/O CHRONIC BACK AND NECK PAIN. PRN DILAUDID GIVEN WITH SOME RELIEF. PT ALSO C/O FEELING ANXIOUS AT BEDTIME. SCHEDULED DIAZEPAM GIVEN. PT HAS SINCE BEEN SLEEPING MOST OF THE NIGHT. RESPIRATIONS EVEN AND UNLABORED. HE REQUESTED TO KEEP THE ROJELIO HOSE ON HIS RIGHT LEG DURING THE NIGHT. NO URINE OUTPUT NOTED SO FAR THIS SHIFT. FALL PRECAUTIONS IN PLACE. PROGRESSING SLOWLY TOWARD POC GOALS. WILL MONITOR FURTHER.
[2021-09-14 04:33] VITALS: BP 112/62
[2021-09-14 08:50] VITALS: BP 121/76
[2021-09-14 12:30] VITALS: BP 148/86
--- NOTE | 2021-09-14 13:35 | NUR ---
Met with patient and spoke with dtr. Discussed post acute care. patient never went to skilled care in Jul. Patient dc home due to his insurance was a [place] plan. Patient moved to [facility] from [place] in Jul. Patient now has medicare. Discussed post acute care. They are agreeable to skilled rehab and interest in [facility] as they have dialysis on site. 5N to eval as well.
[2021-09-14 16:40] VITALS: BP 124/73
--- NOTE | 2021-09-14 17:15 | NUR ---
Assumed care of pt this AM. Pt A&O x4, on RA. SB on the monitor. Pt c/o back/neck pain that is chronic. Pt c/o of increased anxiety over possibly going to rehab unit. Pt expressed to this nurse how he just feels "tired", and that he feels like he "wants to not go to dialysis anymore". This nurse asked pt if he felt like he may possible hurt himself. Pt stated "why would I hurt myself when i'm already in so much pain?". This nurse paged Dr. Bella. Received orders for xanax PRN. Will continue to monitor pt.
[2021-09-14 20:30] VITALS: BP 113/70
[2021-09-15 04:45] VITALS: BP 127/75
--- NOTE | 2021-09-15 06:12 | NUR ---
ASSUMED CARE OF PT AT 1900. PT IS ASSESSED TO BE A0X4 61M WITH ESRD AND ORTHOSTATIC HYPOTENSION. PT HAS A L BKA AND CHRONIC SPINAL ISSUES- PAIN CONTROLLED WITH DILAUDID PO AND XANAX FOR ANXIETY. PT WILL HAVE DIALYSIS PER Walter PRASAD IN AM. [facility], STAND-PIVOT AND IS CONTINENT X2. ROJELIO CAMACHO REMAIN ON R LEG PER MD ORDER. IS WORRIED ABOUT BEING ADMITTED TO AN ELDERLY CARE FACILITY. RESTING IN ROOM NOW, WILL CONTINUE TO MONITOR.
[2021-09-15 08:30] VITALS: BP 141/74
[2021-09-15 13:06] VITALS: BP 117/72
[2021-09-15] MEDS ORDERED: FOLIC ACID1 MG PO (13:32)
[2021-09-15] MEDS ORDERED: PROTONIX 20 MG20 M1 PO (13:32)
[2021-09-15] MEDS ORDERED: MIDODRINE HCL2.5 M1 PO (13:32)
[2021-09-15] MEDS ORDERED: LACTULOSE20 GM/30 M PO (13:32)
[2021-09-15] MEDS ORDERED: HEPARIN SO5000 UNIT/ SUBQ (13:32)
[2021-09-15] MEDS ORDERED: DILAUDID 2 MG TA2 MG PO (13:32)
[2021-09-15] MEDS ORDERED: KEPPRA 500 MG500 M1 PO (13:32)
[2021-09-15] MEDS ORDERED: ALPRAZOLAM 0.0.25 M1 PO (13:32)
[2021-09-15] MEDS ORDERED: ACETAMINOPHEN325 M1 PO (13:32)
[2021-09-15] MEDS ORDERED: HOME MEDICATION OPHTHALMIC (13:32)
[2021-09-15] MEDS ORDERED: HUMALOG100 UNIT/1 SUBQ (13:32)
[2021-09-15] MEDS ORDERED: MIRALAX17 GM PO (13:32)
--- NOTE | 2021-09-15 16:07 | NUR ---
PT RESTING COMFORTABLY. HD TODAY, 0.5L OFF PER HD RN. SEIZURE PRECAUTIONS IN PLACE. PT AFEBRILE, OLIGURIC, NO BM, POOR APPETITE. RIGHT SUBCLAV HD CATH IN PLACE. PT WORKED WITH PHYSICAL THERAPY TODAY. PT HAS BEEN THOUROUGHLY UPDATED AND EDUCATED ON PT CONDITION AND POC. PT TO BE DC TO [facility] THIS AFTERNOON. PT SLOWLY PROGRESSING TOWARDS POC.
--- NOTE | 2021-09-15 16:19 | NUR ---
spoke with son at bedside. Discussed 5N evaled and not accepted. Discussed post acute care. He has skilled list to review. He works at [employer] and cannot have cell phone in building. Plan to call work number in am.
--- NOTE | 2021-09-16 10:09 | HC ---
[facility] [place] [address] CONSULTATION Name: RADHA MCMAHAN Room #: 215-P [facility] IN M.R.#: [id number] Admission: 09/11/21 Attend Phys: Rommel Fairbanks MD Discharge: 09/15/21 Date of : 58 Report #: [id number] THIS REPORT FOR: cc: NICKY - No family physician/PCP FAM - No family physician/PCP Serg Tabor MD ~ DATE OF SERVICE: 09/11/2021 HISTORY OF PRESENT ILLNESS: This is a 61-year-old male patient, who is a poor historian. He talks very slowly and very softly. He tells me that he had 2 episodes of syncope yesterday. First episode, his grandson was at home, who is about 11 years old. He said he was going to the bathroom and found himself on the floor. He does not know what happened. His grandson could not describe him what he did during this episode. The second episode, the daughter was at home and again, he passed out and the daughter thought the patient's eyes rolled into his head. He apparently had some shakiness. REVIEW OF SYSTEMS: Pretty extensive. He has a history of being on dialysis. He does not know how long he was on dialysis. He missed dialysis. His oral intake was poor. REVIEW OF SYSTEMS: Positive for hypertension and hyperlipidemia. Apparently, he had a stroke on the left side of the body, but he cannot tell me much about the stroke. He knows what hospital he was in. He does have a history of hypertension, hyperlipidemia, and diabetes. He has left below-knee amputation. He says he has a history of neuropathy, but I do not know how established the diagnosis is. He has a chronic pain with narcotic use, but he does not tell me where the pain is. There is some question of urinary tract infection and syncope. He has end-stage renal disease. He says he cannot see well, but that is going on for a long time. He denies any chest pain and he does have some respiratory difficulty, but that is baseline. The patient denies any new psychiatric, throat, allergic symptom associated with present symptomatology. He does not have any dermatological or hematological symptoms associated with present symptomatology. PAST MEDICAL HISTORY: Positive for being on dialysis. FAMILY HISTORY: Unremarkable. SOCIAL HISTORY: He does not smoke or drink alcohol. PHYSICAL EXAMINATION: The patient's examination indicates that the patient is alert and responsive. He could tell me what month it is, but could not tell me the exact date. He knew which hospital was he in. Cranial nerve examination 2-12 indicates question of facial palsy on the left side. The vision is poor, but that is his baseline. He moved poorly throughout all 4 extremities, more so [facility] [address] [place] [address] CONSULTATION Name: RADHA MCMAHAN Room #: 215-P [facility] IN M.R.#: [id number] Admission: 09/11/21 Attend Phys: Rommel Fairbanks MD Discharge: 09/15/21 Date of : 58 Report #: [id number] on the left side as compared to the right side. At least on the right side, his position is intact. In spite of diabetes, his reflexes are present. It is difficult to tell about ejqkta-ab-oavp because he is pretty significantly weak. I could not look at the patient's fundus. There is no meningeal sign. There is no thyroid mass. There is no carotid bruit. Pulses are palpable. There is no edema. His hearing and vision looks adequate. VITAL SIGNS: His blood pressure is 128/57, respirations 20, pulse is 55, temperature is 97.7. LABORATORY DATA: White count is 3.3 and GFR is only 13. IMPRESSION: Pretty difficult to form in this patient. I looked at his EEG and EEG does not show any epileptiform activity, but it is mostly slow in generalized fashion. RECOMMENDATIONS: 1. We will suggest a Cardiology consult to make sure there is no cardiology etiology contributing to this patient's problem. 2. He says there is no contraindication for MRI except he had a metal, but he had an MRI when he had that metal inside, so I discussed the pros and cons of MRI and we will schedule an MRI. Thank you very much for this referral and I discussed all of it with the patient in detail. <ELECTRONICALLY SIGNED> By: Serg Tabor MD 09/16/21 1009 [id number] Serg Tabor MD /nt
--- NOTE | 2021-09-16 10:09 | EEG ---
[facility] [place] [address] ELECTROENCEPHALOGRAM Name: RADHA MCMAHAN Room #: 215-P [facility] IN M.R.#: [id number] Admission: 09/11/21 Attend Phys: Rommel Fairbanks MD Discharge: 09/15/21 Date of : 58 Report #: [id number] THIS REPORT FOR: //name// DATE OF SERVICE: 09/11/2021 This patient is being evaluated for the possibility of seizure. EEG was done by placing the electrode by standard 10-20 system of electrode placement. Both referential and sequential montages were used for recording. Background activity in this patient's EEG is 7 Hz and 30 microvolt. The patient became drowsy and that is associated with bilateral slowing and vertex sharp waves. Photic stimulation is unremarkable. Throughout the record, no active epileptiform activity was noted. IMPRESSION: This is an abnormal EEG because it is slow and disorganized. That is a nonspecific abnormality which can occur with encephalopathy, effect of psychotropic medication, dementia, etc. Clinical correlation is recommended. <ELECTRONICALLY SIGNED> By: Serg Tabor MD 09/16/21 1009 [id number] Serg Tabor MD /nt
== END 2021-09-15 17:20 | DRG 100 ==
LOC: ER 03:04 → 2N 05:30 → EROBS 05:30 → 2N 08:21
PROVIDERS: Emergency Medicine; Internal Medicine; Nurse Practitioner; ADMIT Hospitalist; ATTEND Hospitalist
PROC: 5A1D70Z Performance of Urinary Filtration, Intermittent, Less than 6 Hours Per Day (ICD-10-PCS; principal; 2021-09-11)
PROC: 5A1D70Z Performance of Urinary Filtration, Intermittent, Less than 6 Hours Per Day (ICD-10-PCS; 2021-09-14)
DX: G40.409 Other generalized epilepsy and epileptic syndromes, not intractable, without status epilepticus (principal); N18.6 End stage renal disease; G93.41 Metabolic encephalopathy; D61.818 Other pancytopenia; I69.354 Hemiplegia and hemiparesis following cerebral infarction affecting left non-dominant side; I12.0 Hypertensive chronic kidney disease with stage 5 chronic kidney disease or end stage renal disease; Z20.822 Contact with and (suspected) exposure to COVID-19; E78.5 Hyperlipidemia, unspecified; E11.22 Type 2 diabetes mellitus with diabetic chronic kidney disease; E11.40 Type 2 diabetes mellitus with diabetic neuropathy, unspecified; E03.9 Hypothyroidism, unspecified; G89.4 Chronic pain syndrome; R53.81 Other malaise; E11.51 Type 2 diabetes mellitus with diabetic peripheral angiopathy without gangrene; I95.1 Orthostatic hypotension; K59.00 Constipation, unspecified; E53.8 Deficiency of other specified B group vitamins; Z89.512 Acquired absence of left leg below knee; Z88.1 Allergy status to other antibiotic agents; Z88.8 Allergy status to other drugs, medicaments and biological substances; Z87.891 Personal history of nicotine dependence; Z79.891 Long term (current) use of opiate analgesic
CPT/HCPCS: 10081; 32100

== ENCOUNTER 2021-09-15 13:20 | Inpatient (IN) | payer OTHER ==
[~2021-09-15] VITALS: Ht 157.5 cm; Wt 72.3 kg
[~2021-09-15 13:20] MED LIST changes: +CARVEDILOL3.125 MG PO; +DIAZEPAM 5 MG5 M1 PO; +PERCOCET 10-321 EACH PO; +ROSUVASTATIN CA20 MG PO
[2021-09-15] MEDS ORDERED: FOLIC ACID1 MG PO (13:32)
[2021-09-15] MEDS ORDERED: PROTONIX 20 MG20 M1 PO (13:32)
[2021-09-15] MEDS ORDERED: ALPRAZOLAM 0.0.25 M1 PO (13:32)
[2021-09-15] MEDS ORDERED: DILAUDID 2 MG TA2 MG PO (13:32)
[2021-09-15] MEDS ORDERED: KEPPRA 500 MG500 M1 PO (13:32)
[2021-09-15] MEDS ORDERED: MIDODRINE HCL2.5 M1 PO (13:32)
[2021-09-15] MEDS ORDERED: HEPARIN SO5000 UNIT/ SUBQ (13:32)
[2021-09-15] MEDS ORDERED: HUMALOG100 UNIT/1 SUBQ (13:32)
[2021-09-15] MEDS ORDERED: ACETAMINOPHEN325 M1 PO (13:32)
[2021-09-15] MEDS ORDERED: LACTULOSE20 GM/30 M PO (13:32)
[2021-09-15] MEDS ORDERED: HOME MEDICATION OPHTHALMIC (13:32)
[2021-09-15] MEDS ORDERED: MIRALAX17 GM PO (13:32)
--- NOTE | 2021-09-15 17:00 | NUR ---
PT ARRIVED FROM PREVIOUS UNIT VIA W/C. PT WAS TRANSFERED X1 TO BED. PT ABLE TO BEAR WT TO RT LEG, PT HAS BELOW KNEE AMPUTATON TO LEFT LEG. PT STATED HE HAS PAIN TO BACK, AND NECK OF 10 ON 1-10 SCALE. PT ALSO WANTING TO HAVE ANXIETY MEDICATION. PT HAS TESSEO TO RT CHEST AND HAD DIALYSIS TODAY. PT HAS SL TO RT FA. PT UP TO BSC AND HAD SMEAR OF STOOL, PT STATED THE PAIN MEDICATION MAKES HIM CONSTIPATION. PT ALSO VOMITED WHILE UP ON BSC.
[2021-09-15 17:30] VITALS: BP 138/78
--- NOTE | 2021-09-15 18:54 | NUR ---
ADM DILAUDID 2MG PO FOR PAIN TO NECK AND BACK OF 10 ON 1-10 SCALE.
--- NOTE | 2021-09-15 19:12 | NUR ---
ADM ALPRAZALOM 0.25MG PO FOR ANXIETY AND ALSO ZOFRAN 4MG PO FOR NAUSEA. PT BACK TO BED AFTER USING BSC.
[2021-09-15 19:47] VITALS: BP 149/85
--- NOTE | 2021-09-16 02:46 | NUR ---
Assumed care on 09/15/21 @ 1930, admitted to hospital for seizure disorder and late effects of CVA. Transferred to [facility] on 09/15/21. Left leg BKA noted, uses a w/c to mobilize and propels self, also transfers self. Assisted x1 or x2 to transfer from bed to BSC. Noted to sit on the BSC x2 without urine nor BM output. VSS nectar thick liquid, mechanical chop diet. Voltarin cream applied to back for pain. Compliant with p.o. medications, taking meds whole with nectar thick water. Docusate provided for constipation. Asked for pain medication @ 0030, pain med orders had been d/c. Refused Tylenol 650mg. New order obtained from Dr. Calixto via Geovanna Flores NP for Dilaudid 2mg p.o. N9hnwxy administered @ 01:30. Follow up assessment, patient reports very little imporovement in pain and anxiety, which he reports accompanies his pain. Requested stomach medication, Zofran 4mg ODT provided along with early administration of Pantoprazole 40mg. 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 Upon follow up noted to have eyes closed, respirations even and unlabored.
[2021-09-16 08:00] VITALS: BP 158/88
[2021-09-16 09:22] LABS: HEMATOCRIT 34.9 % (42.0-52.0); HEMOGLOBIN 11.6 gm/dL (14.0-18.0); MCH 28.6 pg (26.0-34.0); MCHC 33.3 g/dL (28.0-37.0); MCV 86.1 fL (80.0-100.0); RBC 4.06 mil/uL (4.50-6.00); RDW 14.9 % (10.5-14.5); WBC 3.6 thou/uL (4.0-11.0)
[2021-09-16 09:40] LABS: CALCIUM 8.4 mg/dL (8.5-10.1); POTASSIUM 4.5 mmol/L (3.5-5.1)
--- NOTE | 2021-09-16 13:57 | NUR ---
Nutrition: consult for poor intake yesterday. Prior intake since acute intake with avg of 75% or more. Pt was admitted in July after missing a couple of HD treatments with wt of 154 lb, wt at discharge 139 lb. Current wt within that range. Pt with lt BKA. Albumin 3.1, Cr 4.0. Last K and phos WNL. Last A1c was reported at 6.2. Pt with c/o pain and N/V; physician noted possible gastroparesis vs constipation and started on trial of Reglan. Assessed at low-mild nutrition risk. Will trial Nepro daily.
--- NOTE | 2021-09-16 14:07 | NUR ---
Nutrition: consult for poor intake yesterday; prior intake avg since admit >75%. Pt was admitted in July after missing a couple of HD treatmeents. Wt at that admit was 154, and 139 at discharge. Current wt within that range. Albumin 3.1, last K and phos WNL. Pt with c/o of pain and N/V. Physician noted possible gastroparesis vs constipation and started on trial of Reglan. Pt with chopped diet and NTL. BG 86-157. Pt assessed at mild nutrition risk. Will trial Ensure pudding daily.
--- NOTE | 2021-09-16 14:55 | NUR ---
PT ALERT AND ORIENTED TIMES FOUR WITH SAD FLAT AFFECT. VSS. PT C/O PAIN AND ANXIETY MEDICATIONS GIVEN FOR BOTH WITH GOOD RELEIF. PT TOLERATES MEDS AND MEALS. PT WORKS WELL WITH PT/OT TODAY. WILL CONTINUE TO MONITOR.
--- NOTE | 2021-09-16 15:06 | NUR ---
Chart review. Intro cm and dcp. CM tired to visit with sukhdev, he voiced he was not doing fell, pain and anxiety medication was changed and if going to suffer i just want to speak with my daughter marybeth and go home per sukhdev. Cameron(daughter) # [phone]. Active listing and support during visit. Cm passed on information to his bedside nurse about his concerns and [employer]. Will cont following as needed for dc needs.
[2021-09-16 20:15] VITALS: BP 102/59
--- NOTE | 2021-09-17 00:22 | NUR ---
PT ALERT AND ORIENTED X 4. UP TO BSC WITH ASSIST X 1. PT C/O PAIN IN NECK AND SHOULDERS. DILAUDID GIVEN ORDERED. VOLTAREN GEL APPLIED TO THOSE AREAS. PT TAKES MEDS WITH NECTAR THICK LIQUIDS WITHOUT DIFFICULTY. BED ALARM ON FOR SAFETY. PT CHECKED ON HOURLY ROUNDS.
[2021-09-17 05:55] VITALS: BP 163/78
[2021-09-17 08:00] VITALS: BP 138/93
--- NOTE | 2021-09-17 15:16 | NUR ---
NOTED THIS AM THAT PT IS DUE TODAY FOR HD AND COORDINATED THIS WITH THERAPISTS TO MAXIMIZE THERAPY TIME. SCHEDULE WAS CHANGED. PT C/O PAIN IN NECK AND SHOULDERS BILAT AND HAS BEEN TAKING PO DILAUDID FOR THIS. NOTED ORDERS FOR HEAD NECK CT TODAY AND EDUCATION PROVIDED TO THE PATIENT, WHO VERBLAIZED UDNERSTANDING AND STATED THAT HE WAS GLAD THAT WE WERE LOOKING INTO IT FOR HIM. PT UP TO BSC TODAY FOR LARGE CONTINENT BM AFTER LAXATIVES GIVEN THIS AM. PT PREMEDICATED FOR HD WITH ALPRAZOLAM DUE TO HIS C/O PAIN AND ANXIETY WITH HD. NOTED EARLIER THAT PT BP WAS 138/92. HR 60 APICALLY, AND HE WAS TO GET CARVEDILOL. CLARIFIED WITH PLUG SORTER WHO WAS TO DISCUSS IT WITH NEPHROLOGY TO SEE IF PT NEEDED THIS MEDICATION HELD TODAY. NO ANSWER RECEIVED, SO DR. RODGERS WAS MESSAGED, AND REPLY TO HOLD CARVEDILOL WAS RECEIVED. PT HAS BEEN UP IN THE CHAIR MOST OF THE MORNING WORKING WITH THERAPIES, AND IS CURRENTLY RESTING IN BED DURING HD TREATMENT WITH NO COMPLAINTS.
--- NOTE | 2021-09-17 16:39 | NUR ---
I have reviewed the documentation by JOVANA MAN from 09/16/21 to 09/16/21 and I concur with it. LAURA CINTRON
[2021-09-17 19:37] VITALS: BP 103/39
--- NOTE | 2021-09-18 00:20 | NUR ---
PT ALERT AND ORIENTED X 4. UP TO BSC WITH ASSIST X 1 WITHOUT DIFFICULTY. RIGHT CHEST TESSIO INTACT. PT C/O PAIN IN NECK AND SHOULDERS. DILAUDID GIVEN ORDERED. ALSO C/O ANXIETY AND XANAX GIVEN AT HS. BED ALARM ON FOR SAFETY. PT CHECKED ON HOURLY ROUNDS.
[2021-09-18 08:00] VITALS: BP 129/68
--- NOTE | 2021-09-18 08:06 | NUR ---
Cont therapy and work toward discharge home. Will cont following as needed for dc needs.
[2021-09-18 14:55] VITALS: BP 140/74
--- NOTE | 2021-09-18 15:45 | NUR ---
DR. FORREST WAS NOTIFIED THIS AFTERNOON OF PT'S BP 140/74 AND HIS SCHEDULED MIDODRINE. ORDERS RECEIVED TO CHANGE THIS MEDICATION TO ONLY BE GIVEN JUST PRIOR TO HEMODIALYSIS IF SYSTOLIC BP IS LESS THAN 120. THIS HAS BEEN COMMUNICATED TO THE PT'S PRIMARY RN TO PASS ON IN REPORT. PATIENT HAS VERBALIZED MULTIPLE CONCERNS ABOUT HIS ANXIETY AND PAIN MEDICATIONS, AND STATED THAT HE IS "SUPPOSED TO GET AN ADDITIONAL VALIUM BEFORE HEMODIALYSIS, SUPPOSED TO GET XANAX EVERY 4 HOURS NEEDED, AND CANNOT TAKE ANYTHING WITH ACETAMINOPHEN IN IT DUE TO MY KIDNEYS." ACETAMINOPHEN HELD PER REFUSAL TODAY.
--- NOTE | 2021-09-18 16:56 | NUR ---
I have reviewed the documentation by JOVANA MAN from 09/18/21 to 09/18/21 and I concur with it. LAURA CINTRON
--- NOTE | 2021-09-18 19:24 | NUR ---
PT ANXIOUS THROUGHOUT DAY. PT STATES THAT HIS MEDICATIO STILL ISN'T CORRECT. THIS NURSE DID HOWEVER NOT TAKE PATIENT'S PAIN MED RIGHT AWAY WHEN PT ASKED. THIS NURSE DID APOLOGIZE AND LET PT KNOW THAT IF IT IS NOT BROUGHT IN WITHIN 10 MINUTES HE CAN ASK AGAIN. WILL CONTNIUE TO MONITOR.
[2021-09-18 19:50] VITALS: BP 129/72
--- NOTE | 2021-09-19 01:31 | NUR ---
PT ASSESSMENT COMPLETED AND VSS. MEDS GIVEN ORDERED AND WELL TOLERATED. FALL PRECAUTIONS IN PLACE. UP TO THE BATHROOM WITH ASST/PIVOT WHEELCHAIR/GAIT. SMALL SOFT BROWN BM THIS EVENING. PT STILL FEELING MILDLY CONSTIPATED SO CONSTIPATION MEDICATION GIVEN. ANXIETY MEDICATION HELPFUL. SLEEPING WELL. WILL CONTINUE TO MONITOR FREQUENTLY.
[2021-09-19 08:00] VITALS: BP 138/71
--- NOTE | 2021-09-19 08:23 | NUR ---
PT SITTING UP IN W/C. PT STATED HIS PAIN IS 10 ON 1-10 SCALE TO NECK, BACK, AND ARMS. PT WORKING WITH THERAPY AT THIS TIME. PT TOLERATING NECTOR THICK LIQUIDS. PT TOOK MEDS WHOLE WITH APPLESAUCE WITHOUT ANY ISSUES. PT HAS LEFT BELOW KNEE AMPUTATION WITH PROSTHETIC. PT DID TAKE LAXATIVES THIS AM, COLACE, MIRALAX, AND LACTULOSE. PT STATED HE HAS CONSTIPATION. PT HAS DIALYSIS CATH TO RT CHEST. PT STATED HE GETS ANXIOUS DAY OF DIALYSIS DUE TO SHAKING AND FEELING COLD AND IT'S PAINFUL.
[2021-09-19] MEDS ORDERED: LYRICA 50 MG50 MG PO (11:33)
--- NOTE | 2021-09-19 12:49 | NUR ---
ADM DILAUDID 2MG PO FOR PAIN TO NECK AND BACK. PT STATED DIALYSIS IS GOING TO BE HERE SOON AND HE IS ASKING FOR ANXIETY MEDICATION. STARTED LYRICA ALSO AT THIS TIME PER HOME MED. PT STATED YESTERDAY THAT SERGIO CHEMISTRY TECHNICAL OFFICER SAID HE CAN HAVE DOUBLE DOSE OF ANXIETY MEDICATION BEFORE HIS THERAPY. DO NOT SEE AN ORDER FOR THAT.
--- NOTE | 2021-09-19 14:29 | NUR ---
ADM XANAX 0.25MG PO PRIOR TO GETTING DIALYSIS. PT REQUESTING PAIN MEDICATION ALSO. PT RESTING IN BED WITH EYES CLOSED.
--- NOTE | 2021-09-19 14:53 | NUR ---
ADM MIDODRINE 2.5MG PO FOR PRE-DIALYSIS PER DIALYSIS NURSE. BP IS 132/82.
--- NOTE | 2021-09-19 15:59 | NUR ---
PT GETTING DIALYSIS NOW AT THIS TIME.
[2021-09-19 20:43] VITALS: BP 154/76
--- NOTE | 2021-09-19 23:57 | NUR ---
PT ASSESSMENT COMPLETED AND VSS. MEDS GIVEN ORDERED AND WELL TOLERATED. FALL PRECAUTIONS IN PLACE. PIVOT/GAIT/WHEELCHAIR/ASST TO THE BATHROOM. DIALYSIS COMPLETED AND WELL TOLERATED. PAIN AND ANXIETY MEDICATION HELPFUL. PT SLEEPING WELL. WILL CONTINUE TO MONITOR FREQUENTLY.
[2021-09-20 07:40] VITALS: BP 163/82
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
--- NOTE | 2021-09-20 09:03 | NUR ---
ADM DILAUDID 2MG PO FOR PAIN TO NECK AND SHOULDERS OF 7 ON 1-10 SCALE.
--- NOTE | 2021-09-20 13:08 | NUR ---
PT HAS A POSITIVE OUTLOOK TODAY AND LOOKING TOWARDS GETTING HOME. PT ABLE TO PUT ON PROSTHETIC LEFT LEG WITHOUT ANY ISSUES. PT UP WITH THERAPY VIA WALKER AND WITH STEADY GAIT.
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
[2021-09-20 19:36] VITALS: BP 162/70
--- NOTE | 2021-09-21 02:05 | NUR ---
ASSUMED CARES AT 1900, PT TOILETED NEEDED, SPOKE TO THE DAUGHTER, REPORTED PAIN ON THE BACK, NECK AND SHOULDER, PAIN MEDICATION ADMINISTERED, COMPLIANT TO TX, NO ADVERSE REACTION NOTED, WILL CONTINUE TO MONITOR.
[2021-09-21 07:06] LABS: HEP B SURFACE Ab(ANTI-HBS Reactive (()); HEPATITIS B SURFACE AG Negative (Negative)
--- NOTE | 2021-09-21 08:42 | NUR ---
PT UP TO W/C AND IS MOBILE IN ROOM AND ABLE TO GO TO BATHROOM AND TRANSFER X1. PT HAS TESSIO CATH FOR DIALYSIS TO RT CHEST. PT STATED HE HAS PAIN TO NECK AND SHOULDERS OF 7 ON 1-10 SCALE. PT DIDN'T HAVE A GOOD NIGHT DUE TO TALKING WITH DTR AND HE IS UPSET ABOUT WANTING HER TO BRING HIS SHAVER AND MEDS HE TOOK AT HOME TO SEE WHY HE WAS HAVING PROBLEMS AT DIALYSIS.
[2021-09-21 09:07] VITALS: BP 151/62
--- NOTE | 2021-09-21 12:06 | NUR ---
ADM XANAX 0.25MG FOR ANXIETY AND DILAUDID 2MG PO FOR PAIN TO NECK AND SHOULDERS OF 8 ON 1-10 SCALE.
--- NOTE | 2021-09-21 15:26 | NUR ---
PT WAS LOOKING FOR HIS SHORTS AND LONG PAIR OF PANTS. PT WENT THROUGH LINEN IN [place] AND THROUGH HIS ROOM. PT STATED THEY WAS IN A PLASTIC SACK FROM BEING SOILED. PT DOES HAVE SOME CLOTHES IN THE WASH WILL SEE IF CLOTHES ARE THERE.
[2021-09-21 16:26] VITALS: BP 163/86
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
[2021-09-21 20:35] VITALS: BP 163/86
--- NOTE | 2021-09-22 00:08 | NUR ---
PT ASSESSMENT COMPLETED AND VSS. MEDS GIVEN ORDERED AND WELL TOLERATED. FALL PRECAUTIONS IN PLACE. UP TO THE BATHROOM SEVERAL TIMES THIS EVENING WITH A GAIT BELT/ASST/WHEELCHAIR PIVOT. PT WAS STEADY. ASST WITH REPOSITION FOR COMFORT. VOIDING MODERATE OF YELLOW URINE. DAILYSIS ACCESS WNL. PRN PAIN AND ANXIETY MEDICATION HELPFUL. SLEEPING WELL. WILL CONTINUE TO MONITOR FREQUENTLY.
[2021-09-22 10:02] VITALS: BP 176/70
--- NOTE | 2021-09-22 13:00 | NUR ---
Team meeting, recommendation: Dr Elizalde consulted. Concerns about his meds still. back pain. bharat consulted for his prothesis fitting. Refrain from ethol use. Contact with walking and balance. mech soft with nectar thick liquid, st with vital stim. mod to mod sever cog and memory. He needs assist with medication r/t vision. Dialysis is tue, ted, sat here. He will need to cont. outpt dialysis. Possible going to be staying with daughter at [place]. ( pt, ot, nursing, st with vital stim, and sw). Need walker, his is in [place]. NM 09/30.
[2021-09-22 19:33] VITALS: BP 142/77
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
[2021-09-23 05:27] LABS: HEMATOCRIT 25.7 % (42.0-52.0); HEMOGLOBIN 8.8 gm/dL (14.0-18.0); MCH 29.5 pg (26.0-34.0); MCHC 34.1 g/dL (28.0-37.0); MCV 86.5 fL (80.0-100.0); PLATELET COUNT 85 thou/uL (150-400); RBC 2.97 mil/uL (4.50-6.00); RDW 14.7 % (10.5-14.5); WBC 2.8 thou/uL (4.0-11.0)
[2021-09-23 05:57] LABS: ALBUMIN 2.5 g/dL (3.4-5.0); CALCIUM 7.6 mg/dL (8.5-10.1); CREATININE 2.3 mg/dL (0.7-1.3); MAGNESIUM 1.6 mg/dL (1.8-2.4); PHOSPHORUS 1.7 mg/dL (2.5-4.9); POTASSIUM 5.1 mmol/L (3.5-5.1)
[2021-09-23 08:00] VITALS: BP 130/69
[2021-09-23 12:03] VITALS: BP 130/69
--- NOTE | 2021-09-23 12:14 | NUR ---
PT A&OX4. PT STILL UPSET ABPUT MEDICATION CHANGES. [facility] [phone]. YASMIN ATATED THAT DR. SMITH HAD FILLED THE FOLLOWING MEDICATIONS ON OR AROUND 08/05 FOR A 30 DAY PRESCRIPTION. COREG 3.125MG, PERCOSER 10/325, ROSOUVASTATIN, PREGABLIAN & DIAZPAM YASMIN STATED THAT PT HAS HED MEDICATIONS FILLED AT ANOTHER [facility], STORE [id number].
--- NOTE | 2021-09-23 12:46 | NUR ---
Nutrition followup: pt eating 100% most meals on mechanically altered chopped diet within nectar thick liquids. ST follows. Hemodialysis pt. Labs reviewed and renal diet restriction not indicated at this time. 09/22 BM. Cain has been D/C'ed. Psych following for anxiety. Continue ensure pudding as pt generally eatins 100% of this supplement. Continue as low nutrition risk.
[2021-09-23 13:34] LABS: ABSOLUTE NEUTROPHILS 1.7 thou/uL (1.4-8.2)
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
[2021-09-23 19:18] VITALS: BP 129/68
--- NOTE | 2021-09-23 19:24 | NUR ---
I have reviewed the documentation by EMMA MAN from 09/21/21 to 09/23/21 and I concur with it. AIDEN GONGORA
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
[2021-09-24 08:00] VITALS: BP 145/66
[2021-09-24 10:36] VITALS: BP 145/66
--- NOTE | 2021-09-24 14:59 | NUR ---
Chart review. Spoke with the bedside nurse. Cm cont to try to clarify if he will be able to go back and stay with his daughter henok. Cm called henok x 2 and phone is not accepting call. Will cont following as needed.
[2021-09-24 16:00] VITALS: BP 120/79
[2021-09-24 19:52] VITALS: BP 120/75
--- NOTE | 2021-09-24 23:43 | NUR ---
ASSUMED CARE OF PT AT 1915. PT IS A&OX4. IS ON ROOM AIR. IS STABLE. REPORTS PAIN IN BACK & NECK THAT IS BEING MANAGED WITH ORAL/TOPICAL MEDS & OTHER THERAPUETIC TECHNIQUES. LIDOCIANE PATCH REMOVED FROM BACK. HAS LBKA WITH PROSTHETIC. IS UP WITH TOUCH ASSIST, GB TRANSFER. FALL PRECAUTIONS & HOURLY ROUNDING CONTINUED THIS SHIFT. LABS & VITALS REVIEWED. PT IS CURRENTLY IN BED. ASLEEP. CALL LIGHT WITHIN REACH. WILL CONTINUE TO MONITOR.
[2021-09-25 07:03] VITALS: BP 128/53
--- NOTE | 2021-09-25 07:50 | NUR ---
PT IN W/C THIS AM AND WORKING WITH OT, PT WAS GETTING A SHOWER THIS AM.
--- NOTE | 2021-09-25 09:30 | NUR ---
PT YELLING AT THERAPY AND STAFF TO LEAVE HIS ROOM AND HE WAS PACKING UP HIS BELONGINGS, PT WHEELED SELF TO DOOR AND TRYING TO GET OUT AND STATED HE IS LEAVING AND HE WILL BE PICKED UP BY A HITCHHICKER. DTR WAS UNAVAILABLE FOR A PHONE CALL. PT WAS APPROACHED BY SECURITY RAY AND DR. SIMON TAYLOR. PT WOULD NOT TELL STAFF WHAT THE MATTER WAS. PT STATED THAT WE ARE RUINING HIS LIFE.
--- NOTE | 2021-09-25 10:49 | PLAN ---
[facility] [place] [address] [address] REHAB UNIT PLAN OF CARE Name: ALVIN RUBIO Room #: 514-P ADM IN M.R.#: [id number] Admission: 09/15/21 Attend Phys: Maximo Mireles MD Discharge: Date of : 58 Report #: [id number] THIS REPORT FOR: cc: FAM - No family physician/PCP FAM - No family physician/PCP Maximo Mireles MD ~ PROGRESS NOTE/OVERALL PLAN OF CARE HISTORY OF PRESENT ILLNESS: Alvin Rubio was seen back today in followup. He is pleasant, in good spirits. Temperature 98, pulse 63, respirations 16, blood pressure 129/68. He has been working hard in therapies. His prosthesis was brought in. He has no focal calf swelling of the right lower extremity. He did get up with a walker some today in physical therapy, whereas before he got the prosthesis he has been up with the parallel bars approximately 20 feet. Transfers have been in contact guard assistance. Lower body dressing is min assist. He does have feuv-lr-zfhnjatu cognitive deficits with gzcg-hq-mziftsop memory deficits. He is on mechanical soft diet with nectar thickened liquids. ASSESSMENT: 1. Cervical radiculopathy. 2. Seizure disorder. 3. Late effect cerebrovascular accident. 4. Orthostatic hypotension. 5. Dysphagia, on thickened liquids with speech therapy involved. 6. History of left BKA. 7. End-stage renal disease, on hemodialysis. 8. Diabetes mellitus type 2. 9. Chronic pain syndrome. 10. Cervical degenerative arthritis. 11. Hypothyroidism. PLAN: We are working on upper body strengthening with his noted cervical radiculopathy and changes that were noted post his prior anterior cervical diskectomy and fusion on CT scan prior to his rehabilitation admission. His overall plan of care is based on the pre-admit screen and information garnered from therapy assessments. 1. Estimated length of stay is around 14 days. 2. Medical prognosis is reasonably good. 3. Anticipated interventions includes the interdisciplinary acute inpatient rehabilitation program. 4. Anticipated functional outcomes would be for the patient to become modified independent with transfers, mobility, ADLs and improvement in cognition and improvement in overall endurance, so that he can be successful returning back to the home setting. Goal would be for him to be independent at a walker level. 5. Discharge destination would be back home where he lives with his daughter. [address] [address] REHAB UNIT PLAN OF CARE Name: ALVIN RUBIO Room #: 514-P [facility] IN M.R.#: [id number] Admission: 09/15/21 Attend Phys: Maximo Mireles MD Discharge: Date of : 58 Report #: [id number] 6. Expected therapy by discipline includes PT, OT and speech 1 hour per day each 5 days a week throughout the duration of the acute inpatient rehabilitation stay. ADDENDUM: The patient's prognosis for significant practical improvement within a reasonable period of time appears good. Given the patient's complex medical condition and risk of further medical complication, rehabilitation services could not be safely provided at the lower level of care such as a half-way facility. <ELECTRONICALLY SIGNED> By: Maximo Mireles MD 09/25/21 1049 [id number] Maximo Mireles MD /nt
--- NOTE | 2021-09-25 11:35 | NUR ---
ADM DILAUDID 2MG PO FOR PAIN TO SHOULDERS AND BACK, ALSO ADM XANAX 0.5MG PO FOR ANXIETY. PT TOOK MEDS IN APPLESAUCE.
--- NOTE | 2021-09-25 11:35 | NUR ---
PT IS COOROPERATIVE AT THIS TIME AND WANTING TO WORK WITH PHYSICAL THERAPY. PT SAID TO THERAPIST THANK YOU FOR WORKING WITH ME. PT TOOK MEDS IN APPLESAUCE WITHOUT ANY ISSUES. PT WALKED OUT WITH THERAPY WITH PROSTHETIC AND WALKER.
--- NOTE | 2021-09-25 14:36 | NUR ---
Cm notified this am that he was upset, yelling at staff and throwing item on acute rehab. Cont dcp as needed. Still have not been able to reach or speak with his daughter henok. dc 09/30/21, HH(pt, ot, st with vital stim, and sw). Outpt [facility] for dialysis.
--- NOTE | 2021-09-25 15:57 | NUR ---
LATE ENTRY FOR 09/17/21 REGARDING ADMISSION ASSESSMENT: NM NOTED THAT PT HAD NOT DONE THE BIMS AND ADMISSION ASSESSMENT, AND NM ASKED ORIENTATION AND BIMS QUESTIONS AT THIS TIME, TO ENSURE COGNITIVE FUNCTION WAS ADDRESSED AND ADDED TO TREATMENT PLAN AND IRFPAI. Pt was alert and appropriate, showing no deficits in verbal expression or comprehension of complex information. He was able to repeat the words "sock, blue, and bed" on the first attempt. Reported the correct year, month, and day of the week. He was able to recall "sock, blue, and bed," again a second time.
--- NOTE | 2021-09-25 16:02 | NUR ---
PT REQUESTING ANTI-ANXIETY MEDICATION. PT STATED MEDICATION IS EVERY 4 HOURS. PT XANAX IS Q6HRS AND IS NOT TIME FOR MEDICATION. PT IS RESTING IN W/C WHEN GOING INTO ROOM AT THIS TIME.
--- NOTE | 2021-09-25 16:24 | NUR ---
I have reviewed the documentation by JOVANA MAN from 09/24/21 to 09/25/21 and I concur with it. LAURA CINTRON
--- NOTE | 2021-09-25 17:24 | NUR ---
PT WANTED TO TALK TO DR. MONTES. PROB ABOUT NOT GETTING VALIUM. DR. MONTES STATED THAT WE WAS TO USE XANAX INSTEAD OF VALIUM AND THAT WAS THE PLAN. WILL TELL PT DR. MOTNES WISHES.
[2021-09-25 19:53] VITALS: BP 132/74
--- NOTE | 2021-09-26 00:32 | NUR ---
PT ASSESSMENT COMPLETED AND VSS. MEDS GIVEN ORDERED AND WELL TOLERATED. FALL PRECAUTIONS IN PLACE. PIVOT/GAIT/ASST TO WHEELCHAIR. PT WHEELS HIMSELF TO THE BATHROOM. STANDBY ASST TO THE TOILET. PT SLEEPING ON AND OFF. PAIN AND ANXIETY MEDICATION HELPFUL. PT VERY ANXIOUS. PROVIDED MUCH EMOTIONAL SUPPORT. WILL CONTINUE TO MONITOR FREUQENTLY.
--- NOTE | 2021-09-26 08:14 | NUR ---
PT REFUSED OT THIS MORNING. STATING HE'S UPSET ABOUT HIS PAIN, AND ANXIETY MEDICATIONS. DR CALLED AND STATED SHE WILL COME TALK TO HIM ABOUT HIS MEDICATIONS.
[2021-09-26 09:51] VITALS: BP 116/61
--- NOTE | 2021-09-26 17:16 | NUR ---
I have reviewed the documentation by EMMA MAN from 09/26/21 to 09/26/21 and I concur with it. AIDEN GONGORA
[2021-09-26 19:30] VITALS: BP 104/63
--- NOTE | 2021-09-27 04:05 | NUR ---
PT TRANSFERRING FROM BED TO WC TO TOILET AND IS TOLERATING FAIR. DILAUDID PROVIDING PAIN RELIEF. RESTING COMFORTABLY. NO NEEDS VOICED. CALL LIGHT WITHIN REACH. FREQUENT OBSERVATION.
--- NOTE | 2021-09-27 07:37 | NUR ---
ADM XANAX 0.5MG PO FOR ANXIETY.
[2021-09-27 07:39] VITALS: BP 113/60
--- NOTE | 2021-09-27 08:21 | NUR ---
PT SITTING UP IN BED THIS AM DOING EXERCISES. PT STATED HIS BACK IS STIFF. PT ASKING FOR XANAX DUE TO THE KITCHEN MADE HIM UPSET ABOUT HIS ORDER, HE WANTED TOAST, EGGS, BISCUIT/GRAVY, AND LATVIAN TOAST. PT LUNGS CLEAR. PT UP VIA W/C WITH MEALS AND USES THE BATHROOM. PT HAS LIMITED MOTION TO HANDS BILATERALY. PT HAS NEW CUT TO LEFT THUMB FROM TO LEAVE TUESDAY.
--- NOTE | 2021-09-27 11:50 | NUR ---
PT TALKING WITH CJ AT THIS TIME ON THE PHONE. SHE GAVE ANOTHER NUMBER FOR HIM TO CALL THATS NOT LONG DISTANCE., . ADM DLAUDID 2MG PO FOR PAIN TO NECK AND BACK OF 8 ON 1-10 SCALE.
--- NOTE | 2021-09-27 14:39 | NUR ---
PT COMPLAINING OF LOWER BACK PAIN, TOO EARLY FOR PAIN MEDICATION. ADM XANAX 0.5MG FOR TIGHTNESS TO BACK. PT HAS BEEN UP TO BATHROOM TODAY A FEW TIMES. PT DOES TEND TO FALL ASLEEP WHILE SITTING ON TOILET, NEED TO BE MONITORED WHILE IN BATHROOM.
--- NOTE | 2021-09-27 17:25 | NUR ---
PT COMPLAINS OF LOWER BACK PAIN. ADM DILAUDID 2MG PO FOR PAIN TO BACK. PT STATED HE HAS NOT VOIDED TODAY AND IS WORRIED ABOUT THAT, PT DID HAVE DIALYSIS YESTERDAY AND TOLD PT THAT COULD BE WHY HE HASN'T VOIDED. PT WAS UPSET WITH KITCHEN TONIGHT SAYING HE ORDERED X2 FISH, THE FISH WAS ON TOP OF EACH OTHER AND HE DIDN'T SEE THAT.
[2021-09-27 19:08] VITALS: BP 124/59
--- NOTE | 2021-09-27 23:47 | NUR ---
PT ASSESSMENT COMPLETED AND VSS. MEDS GIVEN ORDERED AND WELL TOLERATED. FALL PRECAUTIONS IN PLACE. UP TO THE BATHROOM SEVERAL TIMES WITH ASST/GAIT/WHEELCHAIR/PIVOT - STEADY. PRN PAIN AND ANXIETY MEDICATION HELPFUL. SNACK PROVIDED. SLEEPING AT THIS TIME. WILL CONTINUE TO MONITOR FREQUENTLY. DIALYSIS ACCESS WNL.
[2021-09-28 08:00] VITALS: BP 116/59
--- NOTE | 2021-09-28 14:28 | NUR ---
WOUND CARE F/U; THE RIGHT LATERAL ANKLE WOUND LOOKS CLINICALLY BETTER. THE WOUND BED IS A HEALTHY RED COLOR. NO S/S OF INFECTION. THE PERIWOUND MASCERATION IS BETTER. NO NEED FOR ANY CHANGES AT THIS TIME. DISCUSSED WITH ANDRA.
--- NOTE | 2021-09-28 15:06 | NUR ---
Pt stated he was angery at Dr Elizalde for not changing medications and stated he wants to be discharged. This RN spoke with Abigail ALCARAZ about situation and she stated she will speak with the team.
[2021-09-28] MEDS ORDERED: BAYER CHEWABLE81 MG PO (15:52)
[2021-09-28] MEDS ORDERED: METHOCARBAMOL500 M2 PO (15:52)
[2021-09-28] MEDS ORDERED: MIDODRINE HCL2.5 M1 PO (15:52)
--- NOTE | 2021-09-28 15:52 | NUR ---
Cm notified by PAINT AND TABLE EDGER, that sukhdev is wanting to leave. Anticipated dc was 09/30 but he voiced the wants to leave. Will cont following as needed.
[2021-09-28] MEDS ORDERED: TRAZODONE HCL100 MG PO (16:04)
--- NOTE | 2021-09-28 16:05 | NUR ---
pt only took 0.25 of xanax at this time with dilaudid.
--- NOTE | 2021-09-28 16:30 | NUR ---
Pt is A & O x4. Pt received medications as ordered and also received PRN medications as requested by pt. pt VS stable. Pt wound dressing changed this shift. Pt worked with PT/OT this shift. PT uses wheel chair for mobility and also uses walker and gait belt. Pt is x 1 assist. Pt is able to make needs known
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
--- NOTE | 2021-09-28 16:58 | NUR ---
Nory live ammunition inspector spoke with pt about discharge plan. Pt was in agreement with plan. Pt currently calm in room.
--- NOTE | 2021-09-28 17:59 | NUR ---
scissors found in pt prosthesis. scissors disposed in sharps container.
[2021-09-28 19:53] VITALS: BP 148/86
--- NOTE | 2021-09-29 00:36 | NUR ---
PT ASSESSMENT COMPLETED AND VSS. MEDS GIVEN ORDERED AND WELL TOLERATED. FALL PRECAUTIONS IN PLACE. UP TO THE BATHROOM WITH ASST/GAIT/WHEELCHAIR PIVOT FREQUENTLY. VOIDING MODERATE AMOUNT OF YELLOW URINE. PT HAD SEVERAL BOWEL MOVEMENTS DURING THE DAY BUT GETS UP ABOUT EVERY 1/2 TO TRY AND HAVE A BOWEL MOVEMENT. HE DOES THIS ON A REGULAR BASIS. TALKED WITH PT ABOUT THIS. HE STATES THAT HE WORRIES A LOT ABOUT HAVING A BOWEL MOVEMENT AND STRUGGLES WITH CONSTIPATION. ALTHOUGH PT HAS BEEN HAVING REGULAR BOWEL MOVEMENTS. SLEEPING WELL AT THIS TIME. WILL CONTINUE TO MONITOR FREQUENTLY.
[2021-09-29 08:00] VITALS: BP 133/80
--- NOTE | 2021-09-29 09:00 | NUR ---
PT COMPLAINED OF CHEST PAIN TO LEFT SIDE SHARP FEELING. PT STATED HE MIGHT HAVE SWALLOWED SOMETHING AND WENT DOWN WRONG PIPE. PT FINISHED BREAKFAST AND ATE 100%.
--- NOTE | 2021-09-29 09:17 | NUR ---
HVAC/R INSTRUCTOR HERE FOR EKG, PT LYING IN BED. PT REFUSED XANAX. PT DID HAVE DILAUDID 2MG PO FOR PAIN TO LEFT SIDE OF CHEST. PT STATED HE FELT A LITTLE BETTER.
--- NOTE | 2021-09-29 09:52 | NUR ---
WHEN COMING ON SHIFT PT ASKED FOR A SCISSORS. HE STATED THAT WOUND CARE HAD GIVEN HIM ONE AND STAFF TOOK IT AWAY DURING THE DAY. DAY RN TOLD STAFF DURING REPORT THAT A SCISSORS WAS FOUND IN HIS PROSTHESIS AND TAKEN FROM HIM. WHEN HE ASKED IF HE COULD HAVE A SCISSORS HE WAS TOLD BY THIS RN THAT WE WERE NOT ALOUD TO GIVE A SCISSORS TO A PATIENT. BUT THAT THIS RN COULD CUT SOMETHING FOR HIM IF HE NEEDED HELP. THIS RN ASKED HIM WHAT HE NEEDED THE SCISSORS FOR AND HE DID NOT RESPOND. GAVE THIS INFORMATION TO DAY RN.
[2021-09-29 10:30] LABS: ABSOLUTE NEUTROPHILS 1.9 thou/uL (1.4-8.2); BASOPHILS 0.6 % (0.0-2.0); EOSINOPHILS 3.1 % (0.0-3.0); HEMATOCRIT 26.3 % (42.0-52.0); HEMOGLOBIN 8.7 gm/dL (14.0-18.0); LYMPHOCYTES 28.2 % (24.0-44.0); MCH 29.5 pg (26.0-34.0); MCV 89.2 fL (80.0-100.0); MONOCYTES 8.1 % (1.0-8.0); PLATELET COUNT 116 thou/uL (150-400); RBC 2.95 mil/uL (4.50-6.00); RDW 15.3 % (10.5-14.5); WBC 3.2 thou/uL (4.0-11.0)
--- NOTE | 2021-09-29 10:38 | EKG ---
[address] [place] [address] ELECTROCARDIOGRAM REPORT Name: RADHA MCMAHAN Room #: 514-P ADM IN M.R.#: [id number] Admission: 09/15/21 Attend Phys: Maximo Mireles MD Discharge: Date of : 58 Report #: [id number] [facility] Test Date: 2021-09-29 Test Time: 09:10:21 Pat Name: RADHA MCMAHAN Department: Room: 514 P Gender: M School Director: [facility] : 1960 Requested By: Maximo Mireles Order Number: [id number] : Demond Torres Measurements Intervals [place] Rate: 71 P: -21 LA: 184 QRS: -46 QRSD: 96 T: -11 QT: 401 QTc: 436 Interpretive Statements Sinus rhythm Probable inferior infarct, age indeterminate Anteroseptal infarct, old Compared to ECG 09/11/2021 03:29:26 No significant changes Electronically Signed On 09-29-2021 10:38:45 SUBSCRIPTION CREW LEADER by Demond Torres [email or web address] <ELECTRONICALLY SIGNED> By: Demond Torres MD, [facility] 09/29/21 1038 0910 0910 Demond Torres MD, FAC /EPI
[2021-09-29 10:55] LABS: ALBUMIN 2.8 g/dL (3.4-5.0); CALCIUM 7.8 mg/dL (8.5-10.1); CREATININE 3.7 mg/dL (0.7-1.3); PHOSPHORUS 3.3 mg/dL (2.5-4.9); POTASSIUM 5.4 mmol/L (3.5-5.1)
--- NOTE | 2021-09-29 12:08 | NUR ---
Faxed updates to [facility] this morning. Id today. [facility]. Stevie notified by [facility] nurse outreach manager he will need ride home, his daughter does not have a car. Stevie set up wheel chair van with [employer], sisal picker time between [phone]. Stevie notified sukhdev and bedside nurse.
[2021-09-29 12:12] VITALS: BP 115/62
--- NOTE | 2021-09-29 12:56 | NUR ---
PT RECIEVED VALIUM 2MG PO PRIOR TO GETTING DIALYSIS. DIALYSIS IS HERE TO START.
--- NOTE | 2021-09-29 13:21 | NUR ---
PER DIALYSIS WANTED PT TO HAVE MIDODRINE 2.5MG PRIOR TO DIALYSIS, ADM DILAUDID 2MG PO FOR PAIN TO BACK AND ALSO MIDODRINE 2.5MG PO.
--- NOTE | 2021-09-29 15:51 | NUR ---
SERGIO SHREDDING MACHINE OPERATOR TOLD PT WAS NOT GOING TO BE GIVEN A SCRIPT FOR NARCOTICS WHEN HE DISCHARGES. PT WAS UPSET AND STATED ABOUT HOW IT WAS SAID HE WAS ABUSING HIS MEDICATIONS, THERE WAS NOT MENTION FROM SHREDDING MACHINE OPERATOR ABOUT ABUSING MEDICATIONS. THE DIALYSIS NURSE WAS IN ROOM WHEN PAIN MEDICATION WAS DISCUSSED, CLARICE SILVERMAN WAS DIALYSIS NURSE.
[2021-09-29 17:17] VITALS: BP 158/68
--- NOTE | 2021-09-29 17:58 | NUR ---
PT FINISHED WITH DIALYSIS AND TOLERATED WELL. PT UP IN W/C. PT COMPLAINED OF PAIN TO BACK OF 10 OVER 10. ADM DILAUDID 2MG PO FOR PAIN TO BACK. PT RECIEVED METHACARBANOL ALSO.
--- NOTE | 2021-09-29 18:18 | NUR ---
PT THANKFUL OF CARE HE RECIEVED AND WAS SAID HE WILL MISS US. PT LEFT VIA W/C VAN TO HOME, DTR IS HOME COOKING DINNER. PT HAS HIS PERSONAL BELONGINGS.
--- NOTE | 2021-09-29 18:27 | NUR ---
I have reviewed the documentation by EMMA MAN from 09/28/21 to 09/29/21 and I concur with it. AIDEN GONGORA
== END 2021-09-29 18:18 | disposition home health service (06) | DRG 551 ==
PROVIDERS: Internal Medicine Nephrology; Nurse Practitioner; Nurse Practitioner Family; ADMIT Physical Medicine & Rehabilitation; ATTEND Physical Medicine & Rehabilitation
PROC: 5A1D70Z Performance of Urinary Filtration, Intermittent, Less than 6 Hours Per Day (ICD-10-PCS; principal; 2021-09-17)
PROC: 5A1D70Z Performance of Urinary Filtration, Intermittent, Less than 6 Hours Per Day (ICD-10-PCS; 2021-09-21)
PROC: 5A1D70Z Performance of Urinary Filtration, Intermittent, Less than 6 Hours Per Day (ICD-10-PCS; 2021-09-22)
PROC: 5A1D70Z Performance of Urinary Filtration, Intermittent, Less than 6 Hours Per Day (ICD-10-PCS; 2021-09-24)
PROC: 5A1D70Z Performance of Urinary Filtration, Intermittent, Less than 6 Hours Per Day (ICD-10-PCS; 2021-09-25)
PROC: 5A1D70Z Performance of Urinary Filtration, Intermittent, Less than 6 Hours Per Day (ICD-10-PCS; 2021-09-26)
PROC: 5A1D70Z Performance of Urinary Filtration, Intermittent, Less than 6 Hours Per Day (ICD-10-PCS; 2021-09-27)
PROC: 5A1D70Z Performance of Urinary Filtration, Intermittent, Less than 6 Hours Per Day (ICD-10-PCS; 2021-09-29)
DX: M47.22 Other spondylosis with radiculopathy, cervical region (principal); N18.6 End stage renal disease; I69.354 Hemiplegia and hemiparesis following cerebral infarction affecting left non-dominant side; I12.0 Hypertensive chronic kidney disease with stage 5 chronic kidney disease or end stage renal disease; I95.3 Hypotension of hemodialysis; G40.909 Epilepsy, unspecified, not intractable, without status epilepticus; E11.22 Type 2 diabetes mellitus with diabetic chronic kidney disease; E11.40 Type 2 diabetes mellitus with diabetic neuropathy, unspecified; E78.5 Hyperlipidemia, unspecified; D69.6 Thrombocytopenia, unspecified; D70.9 Neutropenia, unspecified; K59.00 Constipation, unspecified; F10.11 Alcohol abuse, in remission; R53.81 Other malaise; F32.A Depression, unspecified; R41.9 Unspecified symptoms and signs involving cognitive functions and awareness; R13.10 Dysphagia, unspecified; E11.51 Type 2 diabetes mellitus with diabetic peripheral angiopathy without gangrene; I95.1 Orthostatic hypotension; F41.1 Generalized anxiety disorder; G89.4 Chronic pain syndrome; E03.9 Hypothyroidism, unspecified; Z88.6 Allergy status to analgesic agent; Z88.1 Allergy status to other antibiotic agents; Z88.8 Allergy status to other drugs, medicaments and biological substances; Z79.899 Other long term (current) drug therapy; Z89.512 Acquired absence of left leg below knee; Z79.891 Long term (current) use of opiate analgesic
CPT/HCPCS: 10112; 32100

== ENCOUNTER 2021-11-10 17:16 | Inpatient (IN) | payer OTHER ==
[~2021-11-10] VITALS: Ht 165.1 cm; Wt 71.0 kg
--- NOTE | ~2021-11-10 | EMS ---
[address] [address] EMS Patient Care Report Name: RADHA MCMAHAN Room #: 170-6 ADM IN M.R.#: [id number] Admission: 11/10/21 Attend Phys: Shubham Beckford MD Discharge: Date of : 58 Report #: [id number] THIS REPORT FOR: //name// Report Transmitted: 11/11/2021 10:06 EMS Care Summary [place], [place] Incident [id number] @ 11/10/2021 16:37 Incident Location [id number] [place] [address] Patient RADHA MCMAHAN Male, 61 Years 1960 Patient Address [id number] [place] [address] Patient History Diabetes,End Stage Renal Disease (ESRD),Urinary Tract Infection (UTI),Sepsis, Patient Allergies Other drug allergy, Patient Medications Levothyroxine, Keppra, Diazepam, Carvedilol, Levetiracetam, Furosemide, Oxycodone, Finasteride, Tamsulosin, Chief Complaint SEIZURE Disposition Transported No Lights/[place] Dispatch Reason Unconscious/Fainting Transported To [facility] Narrative PT FOUND LYING SUPINE ON FLOOR IN LIVING ROOM OF HIS HOME. P42 ON SCENE. PTS FAMILY ON SCENE STATES THAT PT WAS WALKING INTO THE HOUSE FROM DIALYSIS AND FELL ONTO THE FLOOR AND STARTED TO HAVE A SZ. PTS FAMILY STATES THAT PT HAS [address] [address] EMS Patient Care Report Name: RADHA MCMAHAN Room #: 170-6 ADM IN M.R.#: [id number] Admission: 11/10/21 Attend Phys: Shubham Beckford MD Discharge: Date of : 58 Report #: [id number] ABSENCE SZ. PTS FAMILY STATES THAT PT HAS NOT HAD ONE IN APPROX 2 YEARS. ON EMS ARRIVAL PT APPEARS TO BE HAVING SZ LIKE ACTIVITY. PT PLACED ON MEGAMOVER BY EMS AND MOVED TO STRETCHER. IN AMBULANCE EMS ATTEMPTS IV NOTED W/O SUCCESS. PT GIVEN VERSED IN NOTED. AFTER VERSED ADMIN PTS SZ MOVEMENTS APPEARS TO CEASE. PT REMAINS UNABLE TO ANSWER QUESTIONS DURING TRANSPORT. NO ADDITIONAL CHANGES NOTED ENROUTE. Initial Vitals @16:50P: 76,BP: 165/88, @PTAP: 70,R: 16,BP: 160/94,Pain: 0/10,GCS: 10,Glucose: 93,SpO2: 95,Revised Trauma: 11, @16:54P: 76,R: 16,BP: 165/86,GCS: 10,SpO2: 96,Revised Trauma: 11, Assessments @16:46MENTAL:Confused,SKIN:No Abnormalities,HEENT:Head/Face: No Abnormalities,LUNG SOUNDS:ABDOMEN:PELVIS//GI:EXTREMITIES:PULSE:NEURO:Seizures, Impression Seizures Procedures @16:56 Midazolam - 5 Milligrams (mg) - Intranasal Response: Unchanged @16:46 ALS Assessment Response: UnchangedSucceeded @PTAIV Therapy - Saline Lock 0cc (20 ga) Site: Antecubital-Left Response: UnchangedFailed @16:54 IV Therapy - Saline Lock 0cc (20 ga) Site: Antecubital-Right Response: UnchangedFailed @16:50 Stretcher Response: Unchanged @16:52 3-Lead ECG Response: UnchangedSucceeded Timeline DEBURR TECHNICIAN,IV Therapy - Saline Lock 0cc 20 ga Site: Antecubital-Left,Response: UnchangedFailed, DEBURR TECHNICIAN,BP: 160/94 M,PULSE: 70,RR: 16 R,SPO2: 95 Ox,ETCO2: ,B,PAIN: 0,GCS: 10, 16:34,Call Received 16:34,Dispatch Notified 16:37,Dispatched 16:37,En Route 16:44,On Scene 16:46,At Patient 16:46,ALS Assessment,Response: UnchangedSucceeded, 16:50,Stretcher,Response: Unchanged 16:50,BP: 165/88 M,PULSE: 76,RR: R,SPO2: Ox,ETCO2: ,BG: ,PAIN: ,GCS: , 16:52,3-Lead ECG,Response: UnchangedSucceeded, [facility] [address] [place] [address] EMS Patient Care Report Name: MARJRADHA ZEPEDA Room #: 170-6 ADM IN M.R.#: [id number] Admission: 11/10/21 Attend Phys: Shubham Beckford MD Discharge: Date of : 58 Report #: [id number] 16:54,BP: 165/86 M,PULSE: 76,RR: 16 R,SPO2: 96 Ox,ETCO2: ,BG: ,PAIN: ,GCS: 10, 16:54,IV Therapy - Saline Lock 0cc 20 ga Site: Antecubital-Right,Response: UnchangedFailed, 16:56,Midazolam - 5 Milligrams (mg) - Intranasal,Response: Unchanged 16:57,Depart Scene 17:10,At Destination 17:20,Call Closed Disclaimer v1.1 Copyright 2020 [employer] This EMS Care Summary contains data elements from the applicable legal record (which may be displayed differently). It is designed to provide pertinent information for the following purposes: continuity of care, clinical quality, and state data reporting. The complete legal record is available to ED staff and administrators of the receiving hospital in [employer]'s Patient Tracker. All data is provided "as is."
--- NOTE | ~2021-11-10 | EMS ---
[address] [address] EMS Patient Care Report Name: RADHA MCMAHAN Room #: 170-16 ADM IN M.R.#: [id number] Admission: 11/10/21 Attend Phys: Shubham Beckford MD Discharge: Date of : 58 Report #: [id number] THIS REPORT FOR: //name// Report Transmitted: 11/12/2021 13:20 EMS Care Summary [place], [place] Incident [id number] @ 11/10/2021 16:37 Incident Location [id number] [place] [address] Patient RADHA MCMAHAN Male, 61 Years 1960 Patient Address [id number] [place] [address] Patient History Diabetes,End Stage Renal Disease (ESRD),Urinary Tract Infection (UTI),Sepsis, Patient Allergies Other drug allergy, Patient Medications Tamsulosin, Finasteride, Oxycodone, Furosemide, Levetiracetam, Carvedilol, Diazepam, Keppra, Levothyroxine, Chief Complaint SEIZURE Disposition Transported No Lights/[place] Dispatch Reason Unconscious/Fainting Transported To [facility] Narrative PT FOUND LYING SUPINE ON FLOOR IN LIVING ROOM OF HIS HOME. P42 ON SCENE. PTS FAMILY ON SCENE STATES THAT PT WAS WALKING INTO THE HOUSE FROM DIALYSIS AND FELL ONTO THE FLOOR AND STARTED TO HAVE A SZ. PTS FAMILY STATES THAT PT HAS [address] [address] EMS Patient Care Report Name: RADHA MCMAHAN Room #: 17016 ADM IN M.R.#: [id number] Admission: 11/10/21 Attend Phys: Shubham Beckford MD Discharge: Date of : 58 Report #: [id number] ABSENCE SZ. PTS FAMILY STATES THAT PT HAS NOT HAD ONE IN APPROX 2 YEARS. ON EMS ARRIVAL PT APPEARS TO BE HAVING SZ LIKE ACTIVITY. PT PLACED ON MEGAMOVER BY EMS AND MOVED TO STRETCHER. IN AMBULANCE EMS ATTEMPTS IV NOTED W/O SUCCESS. PT GIVEN VERSED IN NOTED. AFTER VERSED ADMIN PTS SZ MOVEMENTS APPEARS TO CEASE. PT REMAINS UNABLE TO ANSWER QUESTIONS DURING TRANSPORT. NO ADDITIONAL CHANGES NOTED ENROUTE. Initial Vitals @16:50P: 76,BP: 165/88, @PTAP: 70,R: 16,BP: 160/94,Pain: 0/10,GCS: 10,Glucose: 93,SpO2: 95,Revised Trauma: 11, @16:54P: 76,R: 16,BP: 165/86,GCS: 10,SpO2: 96,Revised Trauma: 11, Assessments @16:46MENTAL:Confused,SKIN:No Abnormalities,HEENT:Head/Face: No Abnormalities,LUNG SOUNDS:ABDOMEN:PELVIS//GI:EXTREMITIES:PULSE:NEURO:Seizures, Impression Seizures Procedures @16:56 Midazolam - 5 Milligrams (mg) - Intranasal Response: Unchanged @16:46 ALS Assessment Response: UnchangedSucceeded @PTAIV Therapy - Saline Lock 0cc (20 ga) Site: Antecubital-Left Response: UnchangedFailed @16:54 IV Therapy - Saline Lock 0cc (20 ga) Site: Antecubital-Right Response: UnchangedFailed @16:50 Stretcher Response: Unchanged @16:52 3-Lead ECG Response: UnchangedSucceeded Timeline CTE TEACHER,IV Therapy - Saline Lock 0cc 20 ga Site: Antecubital-Left,Response: UnchangedFailed, CTE TEACHER,BP: 160/94 M,PULSE: 70,RR: 16 R,SPO2: 95 Ox,ETCO2: ,B,PAIN: 0,GCS: 10, 16:34,Call Received 16:34,Dispatch Notified 16:37,Dispatched 16:37,En Route 16:44,On Scene 16:46,At Patient 16:46,ALS Assessment,Response: UnchangedSucceeded, 16:50,Stretcher,Response: Unchanged 16:50,BP: 165/88 M,PULSE: 76,RR: R,SPO2: Ox,ETCO2: ,BG: ,PAIN: ,GCS: , 16:52,3-Lead ECG,Response: UnchangedSucceeded, [facility] [address] [place] [address] EMS Patient Care Report Name: MARJRADHA ZEPEDA Room #: 170-16 ADM IN M.R.#: [id number] Admission: 11/10/21 Attend Phys: Shubham Beckford MD Discharge: Date of : 58 Report #: [id number] 16:54,BP: 165/86 M,PULSE: 76,RR: 16 R,SPO2: 96 Ox,ETCO2: ,BG: ,PAIN: ,GCS: 10, 16:54,IV Therapy - Saline Lock 0cc 20 ga Site: Antecubital-Right,Response: UnchangedFailed, 16:56,Midazolam - 5 Milligrams (mg) - Intranasal,Response: Unchanged 16:57,Depart Scene 17:10,At Destination 17:20,Call Closed Disclaimer v1.1 Copyright 2020 [employer] This EMS Care Summary contains data elements from the applicable legal record (which may be displayed differently). It is designed to provide pertinent information for the following purposes: continuity of care, clinical quality, and state data reporting. The complete legal record is available to ED staff and administrators of the receiving hospital in [employer]'s Patient Tracker. All data is provided "as is."
[~2021-11-10 17:16] MED LIST changes: +ACETAMINOPHEN325 M1 PO; +ALPRAZOLAM 0.0.25 M1 PO; +BAYER CHEWABLE81 MG PO; +DILAUDID 2 MG TA2 MG PO; +FOLIC ACID1 MG PO; +HEPARIN SO5000 UNIT/ SUBQ; +HOME MEDICATION OPHTHALMIC; +HUMALOG100 UNIT/1 SUBQ; +KEPPRA 500 MG500 M1 PO; +LACTULOSE20 GM/30 M PO; +LYRICA 50 MG50 MG PO; +METHOCARBAMOL500 M2 PO; +MIDODRINE HCL2.5 M1 PO; +MIRALAX17 GM PO; +PROTONIX 20 MG20 M1 PO; +TRAZODONE HCL100 MG PO
[2021-11-10 17:17] VITALS: BP 168/79
[2021-11-10 18:42] LABS: HEMATOCRIT 29.6 % (42.0-52.0); HEMOGLOBIN 9.8 gm/dL (14.0-18.0); MCH 29.9 pg (26.0-34.0); MCV 90.4 fL (80.0-100.0); RBC 3.28 mil/uL (4.50-6.00); RDW 15.9 % (10.5-14.5); WBC 3.2 thou/uL (4.0-11.0)
[2021-11-10 18:45] LABS: ANION GAP 9 mmol/L (7-16); BUN 21 mg/dL (7-18); CALCIUM 8.9 mg/dL (8.5-10.1); CHLORIDE 105 mmol/L (98-107); CO2 27 mmol/L (21-32); GLUCOSE 74 mg/dL (74-106); POTASSIUM 4.3 mmol/L (3.5-5.1); SODIUM 141 mmol/L (136-145)
[2021-11-10 18:52] LABS: ALBUMIN 3.2 g/dL (3.4-5.0); MAGNESIUM 1.4 mg/dL (1.8-2.4); PHOSPHORUS 2.5 mg/dL (2.6-4.7); SALICYLATE < 2.8 mg/dL (2.8-20.0); SGOT 36 U/L (15-37); SGPT 30 U/L (16-63); TOTAL BILIRUBIN 0.6 mg/dL (0.2-1.0); TOTAL PROTEIN 8.1 g/dL (6.4-8.2)
[2021-11-11 01:10] LABS: URINE BILIRUBIN NEGATIVE (Negative); URINE BLOOD TRACE (Negative); URINE CLARITY CLEAR; URINE COLOR YELLOW; URINE GLUCOSE-RANDOM* NEGATIVE (Negative); URINE KETONES TRACE (Negative); URINE LEUKOCYTES-REFLEX NEGATIVE (Negative); URINE NITRITE-REFLEX NEGATIVE (Negative); URINE PROTEIN (DIPSTICK) 3+ (Negative); URINE SPECIFIC GRAVITY 1.015 (1.005-1.035); URINE UROBILINOGEN 0.2 E.U./dl (0.2-1.0)
[2021-11-11 01:19] LABS: AMP/METHAMP Negative (Negative); BARBITURATES Negative (Negative); BENZODIAZEPINES POSITIVE (Negative); COCAINE Negative (Negative); METHADONE Negative (Negative); OPIATES POSITIVE (Negative); PCP Negative (Negative)
[2021-11-11 01:53] LABS: SQUAMOUS 4-10 Moderate /LPF (0-3); URINE RBC 3-10 Few /HPF (NONE SEEN); URINE WBC-REFLEX 0-5 Rare /HPF (0-5)
[2021-11-11 01:54] LABS: BACTERIA-REFLEX 1-9 Few /HPF (None Seen); CRYSTALS None Seen /LPF (None Seen); MUCUS 4-6 Moderate strn/LPF (None Seen)
[2021-11-11] MEDS ORDERED: PROSCAR 5MG TABL5 M1 PO (02:21)
[2021-11-11] MEDS ORDERED: KEPPRA250 MG PO (02:24)
[2021-11-11] MEDS ORDERED: LANTUS SUBQ (02:25)
[2021-11-11] MEDS ORDERED: PROTONIX 20 MG20 MG PO (02:27)
[2021-11-11 07:58] LABS: HEMATOCRIT 26.5 % (42.0-52.0); MCH 30.8 pg (26.0-34.0); MCHC 33.8 g/dL (28.0-37.0); MCV 91.1 fL (80.0-100.0); RBC 2.91 mil/uL (4.50-6.00); RDW 16.3 % (10.5-14.5); WBC 2.7 thou/uL (4.0-11.0)
[2021-11-11 08:09] LABS: CALCIUM 8.4 mg/dL (8.5-10.1); CREATININE 3.6 mg/dL (0.7-1.3)
--- NOTE | 2021-11-11 08:23 | EKG ---
[address] [address] ELECTROCARDIOGRAM REPORT Name: RADHA MCMAHAN Room #: 170-6 ADM IN M.R.#: [id number] Admission: 11/10/21 Attend Phys: Shubham Beckford MD Discharge: Date of : 58 Report #: [id number] [facility] ED Test Date: 2021-11-10 Test Time: 19:31:00 Pat Name: RADHA MCMAHAN Department: Room: 170 Gender: M Inspector Line: CALI OBRIEN : 1960 Requested By: Michael Jimenez Order Number: [id number] MD: Demond Torres Measurements Intervals [place] Rate: 79 P: 28 MS: 229 QRS: -50 QRSD: 92 T: -71 QT: 421 QTc: 483 Interpretive Statements Sinus rhythm Probable left atrial enlargement Left anterior fascicular block Anterior infarct, old Borderline repolarization abnormality Compared to ECG 09/29/2021 09:10:21 Left anterior fascicular block now present Myocardial infarct finding still present Electronically Signed On 11-11-2021 8:23:24 RETAIL WIRELESS SALES CONSULTANT by Demond Torres [email or web address] <ELECTRONICALLY SIGNED> By: Demond Torres MD, FACC 11/11/21 0823 30 30 Demond Torres MD, [facility] /EPI
[2021-11-11 19:15] VITALS: BP 165/80
[2021-11-12 02:38] VITALS: BP 165/80
[2021-11-12 02:42] VITALS: BP 149/78
[2021-11-12 06:50] LABS: HEMATOCRIT 26.3 % (42.0-52.0); HEMOGLOBIN 8.8 gm/dL (14.0-18.0); MCH 30.4 pg (26.0-34.0); MCHC 33.4 g/dL (28.0-37.0); PLATELET COUNT 163 thou/uL (150-400); RBC 2.89 mil/uL (4.50-6.00); RDW 16.3 % (10.5-14.5); WBC 2.2 thou/uL (4.0-11.0)
--- NOTE | 2021-11-12 08:22 | NUR ---
UNABLE TO PULL PATIENT MEDICATIONS AT THIS TIME. PHARMACY AWARE.
[2021-11-12 08:24] VITALS: BP 135/70
--- NOTE | 2021-11-12 09:46 | NUR ---
PT MEDS BEING HELD WHILE PATIENT IN DIALYSIS
[2021-11-12 10:04] LABS: ABSOLUTE NEUTROPHILS 0.9 thou/uL (1.4-8.2); NUCLEATED RBCS 1 /100WBC; PLATELET ESTIMATE NORMAL
--- NOTE | 2021-11-12 11:35 | NUR ---
DIALYSIS FINISHED AT THIS TIME, 2 LITERS OF FLUID TAKEN OFF REPORTEDLY
[2021-11-12 12:24] VITALS: BP 142/70
--- NOTE | 2021-11-12 15:05 | NUR ---
INITIAL ASSESSMENT: SW reviewed chart and spoke with attending physician. Pt was admitted from home due to seizure activity. Pt with hx left BKA and ESRD. Pt goes to [facility] for outpatient dialysis on T-R- second shift. Pt had positive COVID test in the ER. Pt is in Enhanced Isolation. ARNOLD spoke with pt's dtr, Amber, via phone. Introduced role of SW. Pt recently moved to [facility] from [place]. Pt was with [facility] dialysis group in [place] and then transitioned to [facility]. Pt's dtr states that pt was at and had positive COVID test on 10/12/2021. Pt went to [facility] on 10/30 and then discharged home on 11/06. Pt wanted to be home for [place]. ARNOLD discussed with Mariajose in admissions at [facility], who states they will not accept pt back due to his behaviors at time of discharge. ARNOLD discussed discharge plan with pt's dtr, who states pt will need placement, as she is not able to care for him at home at this time. SW discussed alternate facilities. Pt's dtr is agreeable with referral to [facility], which has onsite dialysis. SW faxed referral. OT eval ordered. No weekend discharge planned. Will need OT eval and insurance auth for SNF placement. ARNOLD spoke with America at [facility]. Pt has received one dose of the Moderna COVID vaccine. ARNOLD is following to assist as needed with discharge planning.
[2021-11-12 20:00] VITALS: BP 115/56
[2021-11-13] VITALS (8 sets, daily range): BP systolic 95–165; BP diastolic 44–99
[2021-11-13 06:36] LABS: HEMATOCRIT 25.5 % (42.0-52.0); HEMOGLOBIN 8.4 gm/dL (14.0-18.0); MCHC 33.1 g/dL (28.0-37.0); MCV 90.6 fL (80.0-100.0); RBC 2.81 mil/uL (4.50-6.00); RDW 16.8 % (10.5-14.5); WBC 2.2 thou/uL (4.0-11.0)
[2021-11-13 06:47] LABS: CALCIUM 7.8 mg/dL (8.5-10.1); CREATININE 4.1 mg/dL (0.7-1.3); POTASSIUM 4.5 mmol/L (3.5-5.1)
--- NOTE | 2021-11-13 16:54 | NUR ---
ASSUMED PT CARE FROM ED AT 1430. FINISHED ADMISSION. PT HAS TELE MONITOR ON. TRIED MULTIPLE TIMES TO CALL PT DAUGHTER BUT UNABLE TO CONTACT. PT HAS IV SITE ON [facility]. PT DIALYSIS EVERY TUESDAY, TUESDAY AND TUESDAY. PT HAD DIALYSIS TODAY. PT C/O OF PAIN AND WAS ANXIOUS. GIVEN PAIN AND ANXIETY MEDICATION PER PT REQUEST. PT IS ON ROOM AIR. WILL CONTINUE TO MONITOR PT. FOLLOW POC.
[2021-11-14 02:36] VITALS: BP 127/75
[2021-11-14 05:02] LABS: HEMATOCRIT 27.1 % (42.0-52.0); HEMOGLOBIN 8.8 gm/dL (14.0-18.0); MCH 29.3 pg (26.0-34.0); MCHC 32.3 g/dL (28.0-37.0); MCV 90.8 fL (80.0-100.0); RBC 2.99 mil/uL (4.50-6.00); RDW 16.7 % (10.5-14.5); WBC 2.7 thou/uL (4.0-11.0)
[2021-11-14 05:22] LABS: CALCIUM 7.9 mg/dL (8.5-10.1); CREATININE 3.9 mg/dL (0.7-1.3); POTASSIUM 3.9 mmol/L (3.5-5.1)
--- NOTE | 2021-11-14 07:06 | NUR ---
ASSUMED CARE AT 1900, PT LAYING COMFORTABLY IN BED, COMPLIANT TO TX, NO ADVERSE REACTION, SLEPT THROUGH THE NIGHT, CONTINUES TO BE ON SEIZURE PRECAUTION, TOLERATED TX WELL, CALL LIGHT AND BELONGINGS WITHIN REACH WILL CONTINUE TO MONITOR.
[2021-11-14 08:59] VITALS: BP 106/68
[2021-11-14 11:39] VITALS: BP 146/74
[2021-11-14 15:29] VITALS: BP 146/79
[2021-11-14 19:51] VITALS: BP 146/93
[2021-11-15 06:59] VITALS: BP 166/82
--- NOTE | 2021-11-15 07:51 | NUR ---
Patient making progress outcome goals. High fall risks due to recent seizures. Refuses bed alarm on ans he sits on the side of bed a lot. States he will call for need to get out of bed. Dilaudid and Diazepam given with pain and anxiety relief. Caller states he thickens his liquids, thickener provided and patient able to mix his own. Vital signs and rhythm stable. Oxygenation optimal on room air.
[2021-11-15 15:32] VITALS: BP 150/80
--- NOTE | 2021-11-15 18:57 | NUR ---
A/O X4. SMALL BM. SLOWLY TOWARDS POC GOALS.
[2021-11-15 19:46] VITALS: BP 148/6; BP 148/68
[2021-11-16 02:39] VITALS: BP 116/83; BP 148/78
[2021-11-16 05:42] LABS: HEMATOCRIT 26.6 % (42.0-52.0); HEMOGLOBIN 8.9 gm/dL (14.0-18.0); MCH 30.3 pg (26.0-34.0); MCHC 33.3 g/dL (28.0-37.0); RBC 2.93 mil/uL (4.50-6.00); RDW 16.4 % (10.5-14.5); WBC 2.7 thou/uL (4.0-11.0)
[2021-11-16 05:58] LABS: CALCIUM 7.7 mg/dL (8.5-10.1); POTASSIUM 5.4 mmol/L (3.5-5.1)
[2021-11-16 06:11] LABS: CREATININE 5.5 mg/dL (0.7-1.3)
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
[2021-11-16 07:40] VITALS: BP 157/83
--- NOTE | 2021-11-16 15:18 | NUR ---
ARNOLD reviewed chart and spoke with nursing and attending physician. Pt remains in Enhanced Isolation due to COVID. Pt is afebrile and on room air. Pt is on IV abx. ARNOLD faxed clinical/therapy updates to [facility] for review. Notified Carmen, learning and development coordinator, who will review the info. Pt is medically stable for discharge. ARNOLD requested [facility] submit for insurance auth today if they can accept. ARNOLD spoke with pt's dtr, Amber, via phone to provide update. Per Amber, somebody told pt that he is not able to return to his dtr's home. This is not true. Pt's dtr would like for pt to return home after more rehab. Pt is not taking any calls from his dtr at this time. ARNOLD placed call to pt's room to discuss discharge plan. No answer. ARNOLD is following to assist as needed with discharge planning.
[2021-11-16 15:35] VITALS: BP 115/71
[2021-11-16 20:34] VITALS: BP 128/67
[2021-11-17 05:20] VITALS: BP 134/68
--- NOTE | 2021-11-17 05:26 | NUR ---
ASSUMED PT CARE AT 1900.PT C/O PAIN AND ANXIETY,MANAGED WITH MED.PT AD A MODERATE LOOSE STOOL THIS SHIFT,COMPLETE BED CHANGE DONE.PT WITH SILVANA.PT SLEPT OFF AND ON THIS SHIFT.PT ABLE TO MAKE HIS NEEDS KNOWN.FALL PRECAUTIONS IN PLACE.CALL LIGHT WITHIN REACH.
[2021-11-17 07:46] VITALS: BP 123/77
--- NOTE | 2021-11-17 09:54 | NUR ---
Assess d/t LOS. Pt with recent admissions noted. Is covid+, initial tx at another hospital. PMH: ESRD on HD, DMII, LBKA, seizure d/o. On carb control diet with good intakes 100% most meals. No significant weight changes noted. Labs reviewed, electrolytes altered, nephrology following r/t HD. Renal diet not indicated. Glucose well controlled. Consider low nutrition risk.
--- NOTE | 2021-11-17 13:54 | NUR ---
ARNOLD reviewed chart and spoke with nursing and attending physician. Enhanced Isolation precautions have been discontinued. ARNOLD spoke with Carmen, admissions liaison for [facility]. Per Carmen, [facility] is unable to accept pt at this time. [facility] is able to accept pt and the facility is able to provide transportation to/from dialysis. ARNOLD spoke with America at [facility], who states pt's dialysis schedule will remain T-R-S at 1100. ARNOLD updated Carmen. ARNOLD placed several calls to pt's dtrAmber ([phone]). No answer or option to leave a voice message. ARNOLD placed call to pt's room. No answer. ARNLOD needing to speak with pt/family regarding acceptance to [facility]. The facility will need to submit for insurance authorization. ARNOLD is following to assist as needed with discharge planning.
[2021-11-17 16:55] VITALS: BP 129/65
[2021-11-17 19:58] VITALS: BP 126/62
[2021-11-18 03:50] VITALS: BP 133/63
--- NOTE | 2021-11-18 04:49 | NUR ---
PT IS SLOWLY PROGRESSING TOWARD GOAL OF DISCHARGE. VSS THIS SHIFT. COMPLAINED OF CHRONIC BACK PAIN, MEDICATED X1 WITH PRN DILAUDID. REQUESTED PRN DIAZEPAM AT BEGINNING OF SHIFT. PT IS ABLE TO STAND AND PIVOT TRANSFER TO BSC WITH SBA. NO OTHER C/O AT THIS TIME. WILL CONTINUE TO OBSERVE FOR CHANGES
[2021-11-18 07:55] VITALS: BP 138/63
--- NOTE | 2021-11-18 14:30 | NUR ---
ARNOLD reviewed chart and spoke with nursing and attending physician. Pt is progressing towards goals for discharge. ARNOLD discussed case with [facility] admissions liaison, who states that they will not accept pt as he was documented as leaving AMA from [facility]. ARNOLD has placed multiple calls to pt's room. No answer. ARNOLD placed call to pt's dtr, Amber. Amber's phone is not accepting calls. No option to leave a voice message. Pt will need post-acute placement. Insurance auth will be needed for placement. ARNOLD discussed case with Director of Case Mgmt and attending physician/STUDENT SERVICES DIRECTOR. ARNOLD is following to assist as needed with discharge planning.
[2021-11-18 15:41] VITALS: BP 132/71
--- NOTE | 2021-11-18 18:40 | NUR ---
RN ASSUMED PT'S CARE AT 0700AM, PT IS A&OX3 ( PERSON, PLACE AND TIME), PT IS ON ROOM AIR, PT'S O2SAT AND VS ARE STABLE AT DAY SHIFT, PT IS CONTINUING IV ABX , ANXIETY AND PAIN MANAGEMENT, PT DENIES SOB AT DAY SHIFT,
[2021-11-18 20:18] VITALS: BP 148/81
[2021-11-19 03:04] VITALS: BP 146/84
--- NOTE | 2021-11-19 05:05 | NUR ---
Up to commode at shift change to void and had large bm. Answered orientation questions. Once back to bed , he sat up and lay back down intermittently. He requested pain med for his back pain which he stated he had for years. Verbalized some relief. Tolerating room air well with no respiratory distress. Voided per urinal again. Also requested for his anxiety med with some relief. Making some progress towards care plan goals.
[2021-11-19 08:05] VITALS: BP 128/70
--- NOTE | 2021-11-19 12:03 | NUR ---
ARNOLD reviewed chart and spoke with nursing and attending physician. Pt is progressing towards goals for discharge. Pt is having dialysis today. ARNOLD faxed updated clinical/therapy notes to Cat with [facility] for review. Will need insurance auth for admission. Cat is working with the facilities to determine which facility pt is able to go to. ARNOLD is following to assist as needed with discharge planning.
[2021-11-19 15:55] VITALS: BP 136/0
[2021-11-19 19:40] VITALS: BP 147/77
[2021-11-20 05:32] VITALS: BP 123/64
--- NOTE | 2021-11-20 05:40 | NUR ---
Patient has progressed towards outcome goals. Vital signs and rhtym stable. Up to BSC x 1, calls for assistance in getting out of bed. Chronic pain and anxiety controlled with Hydromorphone and Valium. Awaiting placement.
[2021-11-20 06:10] LABS: HEMATOCRIT 28.4 % (42.0-52.0); HEMOGLOBIN 9.3 gm/dL (14.0-18.0); MCH 30.1 pg (26.0-34.0); MCHC 32.9 g/dL (28.0-37.0); MCV 91.7 fL (80.0-100.0); RBC 3.1 mil/uL (4.50-6.00); RDW 16.4 % (10.5-14.5); WBC 2.5 thou/uL (4.0-11.0)
[2021-11-20 06:35] LABS: CREATININE 3.7 mg/dL (0.7-1.3); POTASSIUM 4.7 mmol/L (3.5-5.1)
[2021-11-20 07:41] VITALS: BP 126/72
--- NOTE | 2021-11-20 11:47 | NUR ---
ARNOLD reviewed chart and spoke with nursing and attending physician. Pt is medically stable for discharge to post-acute care facility. SW contacted Cat with [facility] facilities. Per Cat, she is trying to find which facility has beds available at this time. Cat states the facilities are unsure if they are able to provide transportation to/from dialysis. ARNOLD discussed with Director of Case Mgmt. Approval for Case Mgmt to pay for two weeks of transportation if needed. SW updated Cat. SW spoke with pt via phone to provide update. Pt is aware and in agreement with plan. SW is following to assist as needed with discharge planning.
[2021-11-20 16:14] VITALS: BP 107/54
--- NOTE | 2021-11-20 16:29 | NUR ---
ASSUMED CARE OF PT AT 0700. PT RECIEVED PAIN MEDICATION TWICE THROUGHOUT SHIFT AND RECIEVED A SHOWER WITH OT TODAY. NO OTHER COMPLAINTS. VIAL SIGNS WNL. ON ROOM AIR. AWAITING DISCHARGE.
[2021-11-20 20:38] VITALS: BP 141/82
[2021-11-21 04:59] VITALS: BP 114/58
--- NOTE | 2021-11-21 06:31 | NUR ---
ASSUMED PT CARE AT 1900. PT C/O OF BACK PAIN AND ANXIETY. ADMINISTRED DILUADID AND VALIUM PRN AND NOTED RELIEF. PT IS ABLE TO MAKE NEEDS KNOWN. PT IS NO LONGER IN ISOLATION. VSS AFEBRILE. PT PROGRESSING TOWARDS DISCHARGE GOALS.
[2021-11-21 07:54] VITALS: BP 138/89
[2021-11-21 15:35] VITALS: BP 155/83
--- NOTE | 2021-11-21 19:21 | NUR ---
ASSUMED PATIENT CARE AT 0700. ALERT/ HD TODAY TOLERATED WELL. SOLWLY TOWARDS POC GOALS.
[2021-11-21 20:52] VITALS: BP 139/55
[2021-11-22 04:23] VITALS: BP 164/75
--- NOTE | 2021-11-22 04:25 | NUR ---
UP ONTO BSC MANY TIMES THIS SHIFT. HAVING SOFT TO LOOSE BM'S. HE IS COOPERATIVE. ENCOURAGED HIM TO USE THE BSC IN A TIMELY MANNER. HE DOES TAKE EXTRA TIME ON BSC. APPLIED BARRIER CREAM TO BUTTOCKS AFTER BM. DISCAHRGE PLANNED FOR 11/23/21.
[2021-11-22 08:00] VITALS: BP 169/88
[2021-11-22 15:47] VITALS: BP 138/76
--- NOTE | 2021-11-22 17:24 | NUR ---
ASSUMED PATIENT CARE AT 0700. A/X 3 CONFUSED. SLOWLY TOWARDS POC GOALS.
--- NOTE | 2021-11-22 20:02 | NUR ---
pt complains that the iv antibiotics are giving him nasty diarrhea. he refused to allow me to keep the iv infusing. tried to pull it apart when encouraged
[2021-11-22 20:56] VITALS: BP 142/95
--- NOTE | 2021-11-23 05:44 | NUR ---
PT TRANSFERED TO FLOOR AROUND MIDNIGHT. 1 LARGE LIQUID BM OVERNIGHT. PT REPORTS "NOT FEELING WELL" IN RELATION TO HIS BMs. SLEPT WELL OVERNIGHT. NO ACUTE EVENTS AT THIS TIME
[2021-11-23 07:29] VITALS: BP 111/61
[2021-11-23 09:05] VITALS: BP 111/61
[2021-11-23] MEDS ORDERED: KEPPRA750 MG PO (11:39)
[2021-11-23] MEDS ORDERED: DIVALPROEX SOD500 M1 PO (11:39)
[2021-11-23] MEDS ORDERED: CEFDINIR300 MG PO (11:44)
[2021-11-23] MEDS ORDERED: VSL#3 PACKET1 EACH PO (11:44)
--- NOTE | 2021-11-23 11:49 | NUR ---
Assumed care of patient at shift chnage. Assessment as charted, medications administered per EMAR; prefers thickened liquids. Had a BM this morning; soft and not loose anymore. Patient cleared medically to discharge to [facility]; attempted to call report X1; will try again later. No new needs voiced. Will continue to monitor until discharge.
--- NOTE | 2021-11-23 12:22 | NUR ---
DISCHARGE NOTE: ARNOLD reviewed chart and spoke with nursing and attending physician. Pt was transferred to from and is medically stable for discharge today to [facility]. ARNOLD confirmed with Cat in admissions for the [facility]/[place] facilities. Transportation scheduled for [id number]. SW was notified at 1140. ARNOLD notified pt's nurse. Met with pt at bedside to provide update. Pt is agreeable with plan. Pt does not know his daughter's new phone number. ARNOLD placed call to Amber's listed contact number ([phone]). This number is not accepting calls. Nursing provided with number for report. Chart copy completed. ARNOLD arranged w/c van transportation to/from dialysis staring tomorrow. Director of Case Mgmt aware. [facility] to shrimp picker pt at [facility] at [phone] T-R-S and then will transport to [facility]. Pt will be picked up at [facility] at [phone] and then return to [facility]. Six dialysis sessions are covered. Last covered will be Dec 05. ARNOLD faxed discharge ppsk to Cat at [facility] and to [facility]. Confirmed info was received at both facilities ARNOLD spoke with America at [facility] to provide update. Pt transported via w/c van to [facility]. No additional SW needs identified at this time, but is available to assist should needs arise.
--- NOTE | 2021-11-23 14:16 | HC ---
[facility] [place] [address] CONSULTATION Name: RADHA MCMAHAN Room #: 446-P [facility] M.R.#: [id number] Admission: 11/10/21 Attend Phys: Shubham Beckford MD Discharge: 11/23/21 Date of : 58 Report #: [id number] THIS REPORT FOR: cc: NICKY - No family physician/PCP NICKY - No family physician/PCP Serg Tabor MD ~ DATE OF SERVICE: 11/11/2021 HISTORY OF PRESENT ILLNESS: This is a 61-year-old male patient who has numerous medical issues and neurology consultation is being requested for seizures. His seizures were diagnosed in [place], [place]. He was started on Keppra. He continued to have seizures in spite of being on Keppra. The seizures consist of fluttering of the eyes and his eyes rolling back and the patient passing out. Tonic-clonic activity is questionable. REVIEW OF SYSTEMS: Positive for the fact that he was COVID positive. He was in assisted. He signed himself AMA. His memory is poor. He usually does not remember the month and dates. His last MRI has demonstrated multiple hemorrhages consistent with amyloid angiopathy. He has a history of CVA, hypertension, hyperlipidemia, diabetes and end-stage renal disease. He had a spinal stenosis at multiple levels. He had a history of sepsis, liver disease, chronic pain syndrome, hyperparathyroidism and left below-knee amputation. He had a seizure. He hit apparently his head and the neck. This was his relevant 14-point review of system. PAST MEDICAL HISTORY: Positive for seizure and being on dialysis. FAMILY HISTORY: Positive for seizure. SOCIAL HISTORY: He lives with his daughter. He does not drink alcohol. PHYSICAL EXAMINATION: The patient's examination indicate he is alert. He will not cooperate with examination. He could not tell me what month and what date it is. His speech was barely understandable. I cannot tell about the moment. He did not cooperate similar true with sensation. Cardiac and respiratory examinations appear unremarkable. VITAL SIGNS: Blood pressure is 163/84, respirations 14 and pulse is 73. LABORATORY DATA: Indicate white count of only 2.7 and GFR of 17. One time, glucose was 65. He did have a CT scan of the head that does not show any acute abnormality. IMPRESSION: Numerous medical condition and he also has seizure disorder. History looks reasonably convincing, but the problem is, there is a lot of [facility] [address] [place] [address] CONSULTATION Name: RADHA MCMAHAN Room #: 446-P DIS IN Kaylie.Walter.#: [id number] Admission: 11/10/21 Attend Phys: Shubham Beckford MD Discharge: 11/23/21 Date of : 58 Report #: [id number] limitation on what medication to put him on. He is on Lyrica, a small dose and he is on Keppra, relatively small dose of 500 b.i.d., although he is a dialysis patient. I was thinking of starting him on Dilantin, which works reasonably well in this patient, but my concern is white count, which sometimes can be affected by Dilantin. Similarly, Tegretol is not a good option for him, but I think he should be on some other anticonvulsant. We can try him on Lamictal and then try to build up the dosages that has to be done as an outpatient. I will start that. However, the problem with that is in the meantime, he may continue to have seizures. Therefore, we will give him some Depakote and see how he does with it, but he has to monitor his white count as well as liver function tests as an outpatient. Thank you very much for this referral. <ELECTRONICALLY SIGNED> By: Serg Tabor MD 11/23/21 1416 [id number] Serg Tabor MD /nt
--- NOTE | 2021-11-23 19:36 | NUR ---
Called report on patient to night nurse just now
--- NOTE | 2021-11-24 15:27 | NUR ---
SW received call from pt's dtr, Amber, requesting name of facility where pt discharged to yesterday. ARNLOD returned call ([phone]) and provided address and phone number for Kamila [facility]. ARNOLD updated Amber with discharge time from yesterday. Per Amber, she had provided her new phone number to pt's nurse at one time. ARNOLD explained that the number was not on file. Amber verbalized understanding. No additional SW needs identified at this time. Case closed.
== END 2021-11-23 12:12 | DRG 177 ==
LOC: ER 17:16 → 3W 21:13 → EROBS 21:13 → 3W 11-13 13:59 → 4S 11-22 23:28
PROVIDERS: Emergency Medicine; Nurse Practitioner Family; ADMIT Hospitalist; ATTEND Hospitalist
PROC: 5A1D70Z Performance of Urinary Filtration, Intermittent, Less than 6 Hours Per Day (ICD-10-PCS; principal; 2021-11-12)
PROC: 5A1D70Z Performance of Urinary Filtration, Intermittent, Less than 6 Hours Per Day (ICD-10-PCS; 2021-11-13)
PROC: 5A1D70Z Performance of Urinary Filtration, Intermittent, Less than 6 Hours Per Day (ICD-10-PCS; 2021-11-16)
PROC: 5A1D70Z Performance of Urinary Filtration, Intermittent, Less than 6 Hours Per Day (ICD-10-PCS; 2021-11-17)
DX: U07.1 COVID-19 (principal); J12.82 Pneumonia due to coronavirus disease 2019; N18.6 End stage renal disease; J96.01 Acute respiratory failure with hypoxia; G92.8 Other toxic encephalopathy; F11.20 Opioid dependence, uncomplicated; I69.354 Hemiplegia and hemiparesis following cerebral infarction affecting left non-dominant side; I12.0 Hypertensive chronic kidney disease with stage 5 chronic kidney disease or end stage renal disease; E78.5 Hyperlipidemia, unspecified; E11.22 Type 2 diabetes mellitus with diabetic chronic kidney disease; G40.909 Epilepsy, unspecified, not intractable, without status epilepticus; G89.4 Chronic pain syndrome; M19.90 Unspecified osteoarthritis, unspecified site; K21.9 Gastro-esophageal reflux disease without esophagitis; F41.9 Anxiety disorder, unspecified; E83.42 Hypomagnesemia; F19.10 Other psychoactive substance abuse, uncomplicated; D63.1 Anemia in chronic kidney disease; D72.819 Decreased white blood cell count, unspecified; E11.51 Type 2 diabetes mellitus with diabetic peripheral angiopathy without gangrene; Z87.891 Personal history of nicotine dependence; Z82.49 Family history of ischemic heart disease and other diseases of the circulatory system; Z91.14 Patient's other noncompliance with medication regimen; Z89.512 Acquired absence of left leg below knee; Z88.1 Allergy status to other antibiotic agents; Z88.8 Allergy status to other drugs, medicaments and biological substances; Z86.16 Personal history of COVID-19; Z83.3 Family history of diabetes mellitus; Z79.82 Long term (current) use of aspirin; Z79.899 Other long term (current) drug therapy; Z99.81 Dependence on supplemental oxygen
CPT/HCPCS: 10100; 10879; 32100

== ENCOUNTER 2021-12-26 15:00 | Emergency (ER) | payer OTHER ==
[~2021-12-26] VITALS: Ht 165.1 cm; Wt 72.6 kg
--- NOTE | ~2021-12-26 | EMS ---
[facility] [address] [place] [address] EMS Patient Care Report Name: RADHA MCMAHAN Room #: DEP DEREK Ashley#: [id number] Admission: 12/26/21 Attend Phys: Discharge: 12/26/21 Date of : 58 Report #: [id number] THIS REPORT FOR: //name// Report Transmitted: 12/28/2021 14:42 EMS Care Summary [place], [place]/[facility] Incident [id number] @ 12/26/2021 14:40 Incident Location [address] [place] [address] Patient RADHA MCMAHAN Male, 61 Years 1960 Patient Address [address] [place], [place] [id number] Patient History Diabetes,End Stage Renal Disease (ESRD),Urinary Tract Infection (UTI),Sepsis, Patient Allergies Other drug allergy, Patient Medications Diazepam, Finasteride, Oxycodone, Levothyroxine, Tamsulosin, Keppra, Levetiracetam, Carvedilol, Furosemide, Chief Complaint sz Disposition Transported No Lights/[place] Reason Convulsions/Seizure Transported To [facility] Narrative pt found in dialysis chair, alert, confused. staff state pt had sz that lasted approx 7-8 min. pt was half way through his tx. staff finished half of tx and pt had another sz. on our arrival pt is post ictal. he is placed on cot. 02 cont per NC at 4 L., EKG, transport w/o change to [facility]. report to staff. [facility] [address] [place] [address] EMS Patient Care Report Name: RADHA MCMAHAN Room #: DEP Dion#: [id number] Admission: 12/26/21 Attend Phys: Discharge: 12/26/21 Date of : 58 Report #: [id number] Initial Vitals @PTAP: 80,R: 18,BP: 140/68,GCS: 12,Glucose: 113,SpO2: 100,Revised Trauma: 11, Assessments @14:46MENTAL:Confused,SKIN:No Abnormalities,HEENT:Head/Face: No Abnormalities,LUNG SOUNDS:ABDOMEN:PELVIS//GI:EXTREMITIES:PULSE:NEURO:Seizures, Impression Seizures Procedures @14:46 ALS Assessment @14:50 3-Lead ECG Response: Unchanged @14:48 Stretcher Response: Unchanged @PTAOxygen FlowRate: 4 Device: Nasal Cannula (NC) Response: UnchangedSucceeded 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 It is designed to provide pertinent information for the following purposes: continuity of care, clinical quality, and state data reporting. The complete legal record is available to ED staff and administrators of the receiving hospital in [email or web address] Patient Tracker. All data is provided "as is."
--- NOTE | ~2021-12-26 | EMS ---
[facility] [address] [place] [address] EMS Patient Care Report Name: RADHA MCMAHAN Room #: DEP DEREK Ashley#: [id number] Admission: 12/26/21 Attend Phys: Discharge: 12/26/21 Date of : 58 Report #: [id number] THIS REPORT FOR: //name// Report Transmitted: 12/27/2021 01:16 EMS Care Summary [place], [place]/[facility] Incident [id number] @ 12/26/2021 14:40 Incident Location [address] [place] [address] Patient RADHA MCMAHAN Male, 61 Years 1960 Patient Address [address] [place], [place] [id number] Patient History Diabetes,End Stage Renal Disease (ESRD),Urinary Tract Infection (UTI),Sepsis, Patient Allergies Other drug allergy, Patient Medications Diazepam, Finasteride, Oxycodone, Levothyroxine, Tamsulosin, Keppra, Levetiracetam, Carvedilol, Furosemide, Chief Complaint sz Disposition Transported No Lights/[place] Reason Convulsions/Seizure Transported To [facility] Narrative pt found in dialysis chair, alert, confused. staff state pt had sz that lasted approx 7-8 min. pt was half way through his tx. staff finished half of tx and pt had another sz. on our arrival pt is post ictal. he is placed on cot. 02 cont per NC at 4 L., EKG, transport w/o change to [facility]. report to staff. [facility] [address] [place] [address] EMS Patient Care Report Name: RADHA MCMAHAN Room #: DEP Dion#: [id number] Admission: 12/26/21 Attend Phys: Discharge: 12/26/21 Date of : 58 Report #: [id number] Initial Vitals @PTAP: 80,R: 18,BP: 140/68,GCS: 12,Glucose: 113,SpO2: 100,Revised Trauma: 11, Assessments @14:46MENTAL:Confused,SKIN:No Abnormalities,HEENT:Head/Face: No Abnormalities,LUNG SOUNDS:ABDOMEN:PELVIS//GI:EXTREMITIES:PULSE:NEURO:Seizures, Impression Seizures Procedures @14:46 ALS Assessment @14:50 3-Lead ECG Response: Unchanged @14:48 Stretcher Response: Unchanged @PTAOxygen FlowRate: 4 Device: Nasal Cannula (NC) Response: UnchangedSucceeded Timeline 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,Oxygen FlowRate: 4 Device: Nasal Cannula (NC) Response: UnchangedSucceeded, 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,BP: 140/68 M,PULSE: 80,RR: 18 R,SPO2: 100 Ox,ETCO2: ,B,PAIN: ,GCS: 12, 14:39,Call Received 14:39,Dispatch Notified 14:40,Dispatched 14:41,En Route 14:45,On Scene 14:46,At Patient 14:46,ALS Assessment, 14:48,Stretcher,Response: Unchanged 14:50,3-Lead ECG,Response: Unchanged 14:52,Depart Scene 14:54,At Destination 15:16,Call Closed Disclaimer v1.1 Copyright 2021 [employer] This EMS Care Summary contains data elements from the applicable legal record (which may be displayed differently). It is designed to provide pertinent information for the following purposes: continuity of care, clinical quality, and state data reporting. The complete legal record is available to ED staff and administrators of the receiving hospital in [employer] Patient Tracker. All data is provided "as is."
[~2021-12-26 15:00] MED LIST changes: +CEFDINIR300 MG PO; +DIVALPROEX SOD500 M1 PO; +KEPPRA250 MG PO; +KEPPRA750 MG PO; +LANTUS SUBQ; +PROSCAR 5MG TABL5 M1 PO; +PROTONIX 20 MG20 MG PO; +VSL#3 PACKET1 EACH PO
[2021-12-26 15:46] LABS: ABSOLUTE NEUTROPHILS 2.6 thou/uL (1.4-8.2); BASOPHILS 0.7 % (0.0-2.0); EOSINOPHILS 8.8 % (0.0-3.0); HEMATOCRIT 34.6 % (42.0-52.0); HEMOGLOBIN 11.6 gm/dL (14.0-18.0); LYMPHOCYTES 19.7 % (24.0-44.0); MCH 29.3 pg (26.0-34.0); MCHC 33.6 g/dL (28.0-37.0); MCV 87.1 fL (80.0-100.0); MONOCYTES 8.9 % (1.0-8.0); PLATELET COUNT 79 thou/uL (150-400); POLYS 61.9 % (36.0-66.0); RBC 3.97 mil/uL (4.50-6.00); WBC 4.1 thou/uL (4.0-11.0)
[2021-12-26 16:04] LABS: CALCIUM 8.5 mg/dL (8.5-10.1); CREATININE 4.1 mg/dL (0.7-1.3); POTASSIUM 4.1 mmol/L (3.5-5.1)
[2021-12-26 16:10] LABS: ALBUMIN 3.7 g/dL (3.4-5.0); TOTAL BILIRUBIN 0.6 mg/dL (0.2-1.0); TOTAL PROTEIN 8.1 g/dL (6.4-8.2)
[2021-12-26 18:34] VITALS: BP 129/59
--- NOTE | 2021-12-27 11:04 | EKG ---
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: LYUBOV : 1960 Requested By: Victor Manuel Steele Order Number: [id number] MD: José You Measurements Intervals [place] Rate: 61 P: -10 NE: 50 QRS: -60 QRSD: 112 T: 104 QT: 405 QTc: 408 Interpretive Statements Sinus rhythm Anterior infarct, old Possible inferior infarct, old Compared to ECG 11/10/2021 19:31:00 No significant change was found Electronically Signed On 12-27-2021 11:04:03 [employer]ER by José You [email or web address] <ELECTRONICALLY SIGNED> By: José You MD, [facility] 12/27/21 1104 1543 1543 José You MD, FACC /EPI
== END 2021-12-26 18:34 | disposition home or self-care (01) ==
LOC: ER 15:00
PROVIDERS: Emergency Medicine
DX: R56.9 Unspecified convulsions (principal); I12.0 Hypertensive chronic kidney disease with stage 5 chronic kidney disease or end stage renal disease; E11.22 Type 2 diabetes mellitus with diabetic chronic kidney disease; N18.6 End stage renal disease; E78.5 Hyperlipidemia, unspecified; M19.90 Unspecified osteoarthritis, unspecified site; F41.9 Anxiety disorder, unspecified; K21.9 Gastro-esophageal reflux disease without esophagitis; Z91.15 Patient's noncompliance with renal dialysis; Z86.73 Personal history of transient ischemic attack (TIA), and cerebral infarction without residual deficits; Z86.16 Personal history of COVID-19; Z79.82 Long term (current) use of aspirin; Z79.899 Other long term (current) drug therapy; Z79.891 Long term (current) use of opiate analgesic; Z88.1 Allergy status to other antibiotic agents; Z88.8 Allergy status to other drugs, medicaments and biological substances; Z88.6 Allergy status to analgesic agent; Z87.891 Personal history of nicotine dependence